=== PATIENT | female | born 1945 | race Caucasian/White ===

== ENCOUNTER 2020-08-24 07:36 | Outpatient (REF) | payer MEDICARE, OTHER, SELFPAY ==
--- NOTE | ~2020-08-24 | XR_ITS ---
EXAMINATION: XR KNEES, BILATERAL STANDING XR KNEE, RIGHT CLINICAL INFORMATION: Pain right knee COMPARISON: None TECHNIQUE: AP knees standing one view. 2 views right knee. FINDINGS: AP Bilateral Knees: There is severe loss of medial compartment right knee joint space with moderate periarticular spurring. There is mild loss of medial compartment left knee with mild periarticular spurring. The lateral compartments are normal. No loose body seen. Right Knee: There is moderate loss of patellofemoral compartment joint space with periarticular spurring and mild suprapatellar joint effusion. No bony erosive changes. No loose body abnormality. XR/XR knee standing BI IMPRESSION: Degenerative tricompartment arthritic changes right knee with moderate periarticular spurring. No loose body seen. There is mild joint effusion right knee. Mild degenerative changes medial compartment left knee.
--- NOTE | ~2020-08-24 | XR_ITS ---
EXAMINATION: XR KNEES, BILATERAL STANDING XR KNEE, RIGHT CLINICAL INFORMATION: Pain right knee COMPARISON: None TECHNIQUE: AP knees standing one view. 2 views right knee. FINDINGS: AP Bilateral Knees: There is severe loss of medial compartment right knee joint space with moderate periarticular spurring. There is mild loss of medial compartment left knee with mild periarticular spurring. The lateral compartments are normal. No loose body seen. Right Knee: There is moderate loss of patellofemoral compartment joint space with periarticular spurring and mild suprapatellar joint effusion. No bony erosive changes. No loose body abnormality. XR/XR knee RT 2V IMPRESSION: Degenerative tricompartment arthritic changes right knee with moderate periarticular spurring. No loose body seen. There is mild joint effusion right knee. Mild degenerative changes medial compartment left knee.
== END 2020-08-24 07:37 | disposition home or self-care (01) ==
LOC: HO.HOSX 07:36
PROVIDERS: Visit Provider Orthopaedic Surgery
DX: M25.562 Pain in left knee (principal); M17.11 Unilateral primary osteoarthritis, right knee
CPT/HCPCS: 73560; 73565; 99212

== ENCOUNTER 2020-10-07 07:00 | Outpatient (RCR) | payer MEDICARE, OTHER, SELFPAY ==
--- NOTE | 2020-09-14 08:46 | MHC.PT.EP ---
[facility] [place] Office [place] Office [place] Office [address] Elam [address] [phone] F: [phone] F: [phone] F: [phone] F: [phone] Physical Therapy Plan of Care Date of Evaluation: Date of Surgery: NA Diagnosis: right knee pain. Assessment: The patient arrived reporting right knee weakness and decreased mobility. She had 7 degrees lacking for knee extension and poor eccentric control which limits stair climbing and functional squatting. The patient is a good candidate for skilled PT Frequency and Duration: The patient will be seen 2x/week x 4 weeks Short Term Goals: 1. Improve knee extension ROM for an effective heel strike 2. 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 4 weeks - pt will have more quad control with TKE demonstrated by no medial collapse during a curb height step. 4 weeks -patient to be able to return to all functional movements and ADL's without limiting knee pain to show return to PLOF. Treatment Plan: Modalities to reduce pain, spasms and effusion. Manual therapy to restore motion and function. Therapeutic exercise to improve strength and flexibility. Neuromuscular re-education for posture and balance. Therapeutic activities to return to functional activities of daily living. Electronically signed by: Lindsay Felix PT DPT Please sign and return to therapist. Thank you for your referral.
--- NOTE | 2020-10-07 08:51 | MHC.PT.DC ---
[facility] [place] Office [place] Office [place] Office [address] Roxanna Elam 140 [facility] [place] [phone] F: [phone] F: [phone] F: [phone] F: [phone] Physical Therapy Discharge Report Diagnosis: right knee pain. Date of Surgery: NA Date of Evaluation: 09/14/20 Date of Discharge: 10/07/20 Treatments to Date: 7 Cancellations to Date: No Shows to Date: Discharge Status: Achieved Goals Improved Function Independent with HEP Discharge Summary: The patient has no pain, but significant terminal knee extension weakness on the right side. The patient has been shown the exercises and she is independent with her HEP. She has been discharged from skilled PT today due to reaching maximum potential. Electronically signed by: Lindsay Felix PT DPT Please sign and return to therapist. Thank you for your referral.
== END 2020-10-09 09:00 | disposition home or self-care (01) ==
LOC: HO.PT 07:00
PROVIDERS: PCP Internal Medicine; Visit Provider Orthopaedic Surgery
DX: M17.11 Unilateral primary osteoarthritis, right knee (principal)
CPT/HCPCS: 97110; 97162; 97530

== ENCOUNTER → 2020-11-02 08:23 | Outpatient (BNVA) | payer MEDICARE, OTHER, SELFPAY | PROVIDERS: Visit Provider Orthopaedic Surgery | DX: M17.11 Unilateral primary osteoarthritis, right knee (principal) | CPT/HCPCS: 99212 ==

== ENCOUNTER 2020-12-03 12:16 | Outpatient (REF) | payer MEDICARE, OTHER, SELFPAY ==
--- NOTE | ~2020-12-03 | MM_ITS ---
EXAMINATION: BONE DENSITOMETRY CLINICAL INDICATION: Osteopenia. COMPARISON: Previous BD dated 12/25/2014 and baseline BD dated 04/01/2009. TECHNIQUE: Using a [employer] DXA System (software version: 13.1) manufactured by [employer], dual-energy x-ray absorptiometry was performed of the lumbar spine and left hip. The images are of good technical quality. Summary results are attached. FINDINGS: AP SPINE L1-L3 (excluding L4): The data of L1-L4 has been changed to exclude the L4 vertebral body, because degenerative changes at this level may cause overestimation of lumbar spine density. Current: BMD 1.224 g/cm2, Z-score 1.5, T-score 0.5, normal, 1.7% increase from previous, 0.5% increase from baseline (<5% change is not significant). Prior: BMD 1.204 g/cm2. Baseline: BMD 1.218 g/cm2. LEFT FEMUR, NECK: Current: BMD 0.741 g/cm2, Z-score -0.6, T-score -2.1, osteopenia. Prior: BMD 0.778 g/cm2. Baseline: BMD 0.868 g/cm2. LEFT FEMUR, TOTAL: Current: BMD 0.944 g/cm2, Z-score 0.8, T-score -0.5, normal, 3.0% decrease from previous, 5.8% decrease from baseline (<5% change is not significant). Prior: BMD 0.973 g/cm2. Baseline: BMD 1.002 g/cm2. IDENTIFIED RISK FACTORS: Osteoporosis, menopause. HISTORY OF FRACTURE: None listed. MEDICATIONS: Vitamin D. MM/XR DEXA axial skeleton IMPRESSION: 1. DIAGNOSIS: Osteopenia based on the lowest T-score value of -2.1 in the femoral neck applying World Health Organization criteria. 2. 10-YEAR FRACTURE RISK PREDICTION, FRAX: Major osteoporotic fracture (clinical spine, forearm, hip or shoulder) 13.6%. Hip fracture 3.7%. 3. Treatment Recommendations: NOF guidelines recommend consideration for treatment in postmenopausal women and men age 50 and older presenting with the following: -A hip or vertebral (clinical or morphometric) fracture. -T-score less than or equal to -2.5 at the femoral neck or spine after appropriate evaluation to exclude secondary causes. -Low bone mass at the hip or spine and a 10-year fracture probability by FRAX of greater than or equal to 3% for hip fracture or greater than or equal to 20% for major osteoporotic fracture based on the [place] adapted WHO algorithm. 4. Other Recommendations: All treatment decisions require clinical judgment and consideration of individual patient factors, including patient preferences, comorbidities, previous drug use, risk factors not captured in the FRAX model (e.g. frailty, falls, vitamin D deficiency, increased bone turnover, interval significant decline in bone density) and possible under or overestimation of fracture risk by FRAX. Additional medical evaluation for secondary cause of low bone mineral density may be appropriate. FUTURE SCAN RECOMMENDATION: People with diagnosed cases of osteoporosis or at high risk for fracture should have regular bone mineral density tests. For patients eligible for Medicare, routine testing is allowed once every 2 years. The testing frequency can be increased to one year for patients who have rapidly progressing disease, those who are receiving or discontinuing medical therapy to restore bone mass, or have additional risk factors.
--- NOTE | ~2020-12-03 | MM_ITS ---
EXAMINATION: MM SCREENING DIGITAL BREAST TOMOSYNTHESIS, BILATERAL CLINICAL INFORMATION: Screening. Asymptomatic. The lifetime risk of breast cancer based on the Tyrer-Cuzick Model is 3%. COMPARISON: Mammography: 11/24/2019, 11/20/2018, 11/01/2017 TECHNIQUE: Digital breast tomosynthesis is performed in both the craniocaudal and mediolateral oblique views along with computer-aided detection (CAD). Synthesized 2D images are generated from the tomosynthesis. FINDINGS: There are scattered areas of fibroglandular density (ACR BI-RADS breast composition Category b). There are no significant masses, abnormal calcifications, or other abnormalities. Parenchymal pattern is similar to prior exams. Small incidental isolated intramammary nodes anterior and posterior upper outer right breast and low left axillary tail, or stable. There are a few benign calcifications again seen left breast. No abnormal calcifications. The axilla and skin contours are unremarkable. MM/MM tomosynthesis screening BI IMPRESSION: No mammographic evidence of malignancy. ASSESSMENT: BI-RADS 2: Benign RECOMMENDATION: Routine annual mammography screening. This patient's information was entered into a reminder system with a target due date for their next mammogram.
== END 2020-12-03 12:17 | disposition home or self-care (01) ==
LOC: HO.MAMMO 12:16
PROVIDERS: Visit Provider Nurse Practitioner Family
DX: Z12.31 Encounter for screening mammogram for malignant neoplasm of breast (principal); Z13.820 Encounter for screening for osteoporosis; M85.80 Other specified disorders of bone density and structure, unspecified site; Z78.0 Asymptomatic menopausal state
CPT/HCPCS: 77063; 77067; 77080

== ENCOUNTER 2021-12-08 11:39 | Outpatient (REF) | payer MEDICARE, OTHER, SELFPAY ==
--- NOTE | ~2021-12-08 | MM_ITS ---
EXAMINATION: MM SCREENING DIGITAL BREAST TOMOSYNTHESIS, BILATERAL CLINICAL INFORMATION: Screening. Asymptomatic. The lifetime risk of breast cancer based on the Tyrer-Cuzick Model is 3%. COMPARISON: Mammography: 12/03/2020, 11/24/2019, 11/20/2018 TECHNIQUE: Digital breast tomosynthesis is performed in both the craniocaudal and mediolateral oblique views along with computer-aided detection (CAD). Synthesized 2D images are generated from the tomosynthesis. FINDINGS: There are scattered areas of fibroglandular density (ACR BI-RADS breast composition Category b). There are no significant masses, abnormal calcifications, or other abnormalities. Pattern borders on predominantly fatty. There is no developing density or architectural abnormality. Incidental intramammary nodes again seen outer right breast. The axilla and skin contours are unremarkable. MM/MM tomosynthesis screening BI IMPRESSION: No mammographic evidence of malignancy. ASSESSMENT: BI-RADS 2: Benign RECOMMENDATION: Routine annual mammography screening. This patient's information was entered into a reminder system with a target due date for their next mammogram.
== END 2021-12-08 11:40 | disposition home or self-care (01) ==
LOC: HO.MAMMO 11:39
PROVIDERS: PCP Internal Medicine; Visit Provider Nurse Practitioner Family
DX: Z12.31 Encounter for screening mammogram for malignant neoplasm of breast (principal)
CPT/HCPCS: 77063; 77067

== ENCOUNTER 2022-12-14 09:59 | Outpatient (REF) | payer MEDICARE, OTHER, SELFPAY | END 2022-12-14 10:00 | disposition home or self-care (01) | LOC: HO.MAMMO 09:59 | PROVIDERS: Visit Provider Radiology Diagnostic Radiology | DX: Z12.31 Encounter for screening mammogram for malignant neoplasm of breast (principal) | CPT/HCPCS: 77063; 77067 ==

== ENCOUNTER → 2022-12-14 10:15 | Outpatient (BNV) | payer MEDICARE, OTHER, SELFPAY | PROVIDERS: Visit Provider Radiology Diagnostic Radiology | DX: Z12.31 Encounter for screening mammogram for malignant neoplasm of breast (principal) | CPT/HCPCS: 77063; 77067 ==

== ENCOUNTER 2023-12-21 08:21 | Outpatient (REF) | payer MEDICARE, OTHER, SELFPAY ==
--- NOTE | ~2023-12-21 | MM_ITS ---
EXAMINATION: MM SCREENING DIGITAL BREAST TOMOSYNTHESIS, BILATERAL CLINICAL INFORMATION: Screening. Asymptomatic. COMPARISON: Mammography: Comparison is made with available priors TECHNIQUE: Digital breast mammography with tomosynthesis is performed in both the craniocaudal and mediolateral oblique views along with computer-aided detection (CAD). FINDINGS: There are scattered areas of fibroglandular density (ACR BI-RADS breast composition Category b). There are no significant masses, abnormal calcifications, or other abnormalities. MM/MM tomosynthesis screening BI IMPRESSION: No mammographic evidence of malignancy. ASSESSMENT: BI-RADS BI-RADS 1 - Negative RECOMMENDATION: Routine annual mammography screening. 1 year F/U This examination should not preclude the clinical evaluation of a suspicious palpable abnormality. This patient's information was entered into a reminder system with a target due date for their next mammogram. Electronically signed by: Farideh Fuentes DO 01/01/2024 06:15 PM EDT
== END 2023-12-21 08:22 | disposition home or self-care (01) ==
LOC: HO.MAMMO 08:21
PROVIDERS: PCP Internal Medicine; Visit Provider Internal Medicine
DX: Z12.31 Encounter for screening mammogram for malignant neoplasm of breast (principal)
CPT/HCPCS: 77063; 77067

== ENCOUNTER → 2023-12-21 08:30 | Outpatient (BNV) | payer MEDICARE, OTHER, SELFPAY | PROVIDERS: PCP Internal Medicine; Visit Provider Internal Medicine | DX: Z12.31 Encounter for screening mammogram for malignant neoplasm of breast (principal) | CPT/HCPCS: 77063; 77067 ==

== ENCOUNTER 2023-12-28 17:09 | Inpatient (IN) | payer MEDICARE, OTHER, SELFPAY ==
[2023-12-28] VITALS (14 sets, daily range): BP systolic 161–197; BP diastolic 57–102; PULSE 58–76; RESP 12–25; TEMP 36.3–36.8; O2SAT 88–98; BMI 33.6
--- NOTE | ~2023-12-28 | XR_ITS ---
EXAMINATION: XR CHEST CLINICAL INFORMATION: Hypoxia COMPARISON: 06/09/2016 TECHNIQUE: Semiupright portable 2:22 PM view of the chest was obtained. FINDINGS: Liver portable exam demonstrates moderate cardiomegaly. Slight pulmonary vascular congestion with cephalization noted. Retrocardiac region difficult to assess. Suspect an element of minor airspace disease suggesting pneumonia. Small pleural effusion also question. XR/XR chest 1V IMPRESSION: Cardiomegaly with mild CHF as above. Retrocardiac infiltrate suspected. Electronically signed by: Dennis Marsh MD 12/29/2023 03:35 PM EDT
--- NOTE | ~2023-12-28 | CT_ITS ---
EXAMINATION: CT HEAD WITHOUT CONTRAST CLINICAL INFORMATION: Status post TNK with worsening symptoms. COMPARISON: CT head dated December 28, 2023 at 5:18 PM. TECHNIQUE: Contiguous axial imaging was performed from the skull base to vertex without intravenous administration of contrast. This CT examination was performed using dose optimization techniques as appropriate, variously including the following: *Automated exposure control *Adjustment of mA and/or kV according to patient size (this includes techniques or standardized protocols for targeted exams where dose is matched to indication/reason for exam; i.e. extremities or head) *Use of iterative reconstruction technique DLP: 680 mGy-cm FINDINGS: There is no acute intracranial hemorrhage. There is no evidence of acute/subacute cerebral or cerebellar infarction. There are age-indeterminate lacunar infarctions within the basal ganglia bilaterally and the left centrum semiovale. There is mild microvascular ischemic change. There is no midline shift or mass effect. No extra-axial fluid collection. Ventricles are normal in size. The orbits are symmetric and within normal limits. The visualized paranasal sinuses and mastoid air cells are clear. CT/CT head/brain wo IV con IMPRESSION: No acute intracranial abnormality. Specifically, there is no intracranial hemorrhage status post the administration of TNK. Mild microvascular ischemic disease. Age indeterminate lacunar infarctions within the basal ganglia and left centrum semiovale. This critical result was discussed with Dr. Mederos at 8:15 PM on 12/28/2023 and it was ascertained that the content and urgency of the report was understood at the time of direct communication. Electronically signed by: Milton Scott DO 12/28/2023 08:16 PM EDT
--- NOTE | ~2023-12-28 | MR_ITS ---
EXAMINATION: MR BRAIN WITHOUT CONTRAST CLINICAL INFORMATION: Cerebrovascular accident status post TNK. COMPARISON: CT head 12/29/2023. TECHNIQUE: MRI of the brain was obtained using routine sequences without contrast. FINDINGS: There is restricted diffusion representing multiple acute infarcts primarily located between the major vascular territories of the right cerebral hemisphere as well as a few cortical infarcts within the right occipital lobe. These findings are superimposed upon numerous chronic small vessel ischemic changes primarily involving the periventricular white matter. There are scattered punctate foci of magnetic susceptibility artifact within the gary, thalami, and cerebellum indicating likelihood of underlying chronic hypertensive angiopathy. There is no intracranial mass effect or midline shift. No abnormal extra-axial collection. Lateral and third ventricles are normal. No hydrocephalus. Midline structures including the cervicomedullary junction are normal. No acute bone marrow signal changes. There is a trace left mastoid tip effusion. Mild paranasal sinus disease primarily affecting the ethmoid air cells. Globes and orbits are grossly symmetric. MR/MR head/brain wo con IMPRESSION: There are multiple acute infarcts primarily located between the major vascular territories of the right cerebral hemisphere as well as a few cortical infarcts within the right occipital lobe. These findings are superimposed upon numerous chronic small vessel ischemic changes primarily involving the periventricular white matter. There are also scattered chronic microhemorrhages within the gary, thalami, and cerebellum indicating the likelihood of underlying chronic hypertensive angiopathy. Electronically signed by: Nii Lyon MD 12/29/2023 02:06 PM EDT
--- NOTE | ~2023-12-28 | CT_ITS ---
EXAMINATION: CT ANGIOGRAM HEAD AND NECK WITHOUT AND WITH CONTRAST CLINICAL INFORMATION: LEFT ARM WEAKNESS. COMPARISON: CT HEAD DATED DECEMBER 28, 2023. TECHNIQUE: CONTIGUOUS AXIAL CT IMAGES WERE OBTAINED FROM THE AORTIC ARCH TO THE VERTEX OF THE HEAD FOLLOWING THE ADMINISTRATION OF 50 ML OF OMNIPAQUE 350 INTRAVENOUS CONTRAST. THE DATA WAS TRANSFERRED TO AN INDEPENDENT WORKSTATION, WHERE 3-D RECONSTRUCTIONS WERE PERFORMED. PRE-AND POSTCONTRAST HEAD CTS WERE ALSO PERFORMED. THE DEGREE OF STENOSIS DETERMINED BY NASCET CRITERIA. THIS CT EXAMINATION WAS PERFORMED USING DOSE OPTIMIZATION TECHNIQUES APPROPRIATE, VARIOUSLY INCLUDING THE FOLLOWING: *AUTOMATED EXPOSURE CONTROL *ADJUSTMENT OF MA AND/OR KV ACCORDING TO PATIENT SIZE (THIS INCLUDES TECHNIQUES OR STANDARDIZED PROTOCOLS FOR TARGETED EXAMS WHERE DOSE IS MATCHED TO INDICATION/REASON FOR EXAM; I.E. EXTREMITIES OR HEAD) *USE OF ITERATIVE RECONSTRUCTION TECHNIQUE DLP: 1443 MGY-CM INTERPRETATION OF FILMS: HEAD CT: There is no acute intracranial hemorrhage. There is no evidence of acute/subacute cerebral or cerebellar infarction. There is an age indeterminant lacunar infarction within the anterior left canela radiata. There is an age indeterminate lacunar infarction within the left basal ganglia. There is mild microvascular ischemic change. There is no midline shift or mass effect. There is no extra-axial fluid collection. The ventricles are normal in size. There is no pathologic enhancement following the intravenous administration of contrast. The orbits are normal in appearance. The mastoid air cells and visualized paranasal sinuses are clear. NECK CTA: The visualized aorta is normal in caliber. There is mild calcific atherosclerotic disease throughout the aortic arch. The origins of the common carotid arteries are widely patent. The origin of the right vertebral artery is widely patent. There is mild narrowing at the origin of the left vertebral artery. The subclavian arteries are widely patent. There is mild calcific atherosclerotic disease at the level of the right common carotid artery bifurcation resulting in mild luminal irregularity of the proximal right internal carotid artery without significant stenosis. The cervical segment of the right internal carotid artery is otherwise normal in caliber. There is significant calcific atherosclerotic disease at the level of the left common carotid artery bifurcation resulting in significant luminal irregularity throughout the proximal left internal carotid artery without significant stenosis. There may be a 4 mm medially projecting pseudoaneurysm within the carotid bulb. The remainder of the cervical segment of the left internal carotid artery demonstrates smooth luminal margins and is normal in caliber. The right vertebral artery is patent and has a normal course through the cervical region. The left vertebral artery is patent and has a normal course through the cervical region. HEAD CTA: The intracranial right internal carotid artery is normal in caliber. There is a large caliber, type right posterior communicating artery. The right anterior and middle cerebral arteries are normal in appearance without significant stenosis or major branch vessel occlusion. The intracranial left internal carotid artery is normal in caliber. The left anterior and middle cerebral arteries are normal in appearance without significant stenosis or major branch vessel occlusion. The anterior communicating artery is unremarkable. The intracranial vertebral arteries are widely patent and communicate normally with the basilar trunk. The posterior inferior cerebellar arteries are normal in appearance. The basilar artery and posterior cerebral artery vasculature is normal in appearance. The P1 segment of the right posterior cerebral artery is markedly hypoplastic. No intracranial aneurysm. No evidence of high flow vascular malformation. OTHER: Lung apices are clear. There is a 1 cm low-attenuation lesion within the left lobe of the thyroid gland. SUMMARY: No acute intracranial abnormality. There is an age indeterminate lacunar infarction within the anterior left canela radiata. There is an age indeterminate left basal ganglia lacunar infarction. Mild microvascular ischemic change. No intracranial large vessel occlusion. There is significant calcific atherosclerotic disease at the level of the left common carotid artery bifurcation resulting in significant luminal irregularity throughout the left carotid bulb. There may be a 4 mm medially projecting pseudoaneurysm within the left carotid bulb. There is a 1 cm low-attenuation lesion within the left lobe of the thyroid gland. Further evaluation with ultrasound is recommended if not already performed. Electronically signed by: Milton Scott DO 12/28/2023 07:39 PM EDT
--- NOTE | ~2023-12-28 | CT_ITS ---
EXAMINATION: CT HEAD WITHOUT CONTRAST CLINICAL INFORMATION: Worsening symptoms after TPA COMPARISON: CT head 12/28/2023 7:00 PM TECHNIQUE: Contiguous axial imaging was performed from the skull base to vertex without intravenous administration of contrast. This CT examination was performed using dose optimization techniques as appropriate, variously including the following: *Automated exposure control *Adjustment of mA and/or kV according to patient size (this includes techniques or standardized protocols for targeted exams where dose is matched to indication/reason for exam; i.e. extremities or head) *Use of iterative reconstruction technique DLP: 785 mGy-cm FINDINGS: No intracranial hemorrhage, tumors or acute infarcts identified. Mild diffuse commensurate prominence of the ventricles and sulci. Unchanged multifocal scattered subcortical and periventricular white matter patchy hypodensities including focal hypodensities within the left canela radiata. Normal appearance of the orbits and globes. No extracranial soft tissue inflammatory changes. No significant opacification of the visualized paranasal sinuses, mastoid air cells and middle ear cavities. CT/CT head/brain wo IV con IMPRESSION: *No acute intracranial abnormalities. No acute intracranial hemorrhage. Electronically signed by: Alfonso Hernandez MD 12/29/2023 02:21 AM EDT
--- NOTE | ~2023-12-28 | CT_ITS ---
EXAMINATION: CT HEAD WITHOUT CONTRAST (STROKE PROTOCOL) CLINICAL INFORMATION: Stroke protocol. Left arm weakness. COMPARISON: None available. TECHNIQUE: Contiguous axial imaging was performed from the skull base to vertex without intravenous administration of contrast. This CT examination was performed using dose optimization techniques as appropriate, variously including the following: *Automated exposure control *Adjustment of mA and/or kV according to patient size (this includes techniques or standardized protocols for targeted exams where dose is matched to indication/reason for exam; i.e. extremities or head) *Use of iterative reconstruction technique DLP: 1205 mGy-cm FINDINGS: There is no acute intracranial hemorrhage. There is no evidence of acute/subacute cerebral or cerebellar infarction. There is an age indeterminant lacunar infarction within the anterior left canela radiata. There is mild microvascular ischemic change. There is no midline shift or mass effect. There is no extra-axial fluid collection. The ventricles are normal in size. The orbits are normal in appearance. The mastoid air cells and visualized paranasal sinuses are clear. CT/CT head for stroke IMPRESSION: No acute intracranial pathology. There is an age indeterminate lacunar infarction within the anterior left canela radiata. Mild microvascular ischemic change. This critical result was discussed with Dr. Stout at 5:49 PM hours on 12/28/2023. It was ascertained that the content and urgency of the report was understood at the time of direct communication. Electronically signed by: Milton Scott DO 12/28/2023 05:49 PM EDT
--- NOTE | ~2023-12-28 | XR_ITS ---
EXAMINATION: XR CHEST CLINICAL INFORMATION: Questionable aspiration COMPARISON: None available. TECHNIQUE: Frontal view of the chest was obtained. FINDINGS: Large body habitus and overlying thermal blanket limits evaluation of the bases. Blunting of the left costophrenic angle may represent underlying pleural effusion. No pneumothorax. Cardiac mediastinal silhouette within normal limits. Bilateral shoulder osteoarthritis. XR/XR chest 1V IMPRESSION: Suboptimal study to evaluate bases due to body habitus and overlying thermal blanket. Left costophrenic angle is blunted and may represent consolidation or effusion. Recommend dedicated CT thorax for further evaluation, if indicated. Electronically signed by: Ernst Syed DO 12/29/2023 09:32 PM EDT RP
--- NOTE | 2023-12-28 17:15 | ECG_ITS ---
Test Reason : ?stroke Blood Pressure : / mmHG Vent. Rate : 059 BPM Atrial Rate : 059 BPM P-R Int : 196 ms QRS Dur : 082 ms QT Int : 450 ms P-R-T Axes : 023 -23 022 degrees QTc Int : 445 ms Sinus bradycardia with occasional Premature ventricular complexes Inferior infarct , age undetermined Anteroseptal infarct , age undetermined Abnormal ECG When compared with ECG of 11-JUL-2006 10:52, Premature ventricular complexes are now Present Anteroseptal infarct is now Present Inferior infarct is now Present Referred By: Cielo Mcintosh Electronically Signed By:HAYLIE HILLS
--- NOTE | 2023-12-28 17:19 | ED.NEUROSD ---
HPI - Neuro Symptoms/Deficit General Chief Complaint: Stroke Stated Complaint: cant move L arm, trouble walking Time Seen by Provider: 12/28/23 17:29 Source: patient Mode of arrival: ambulatory Limitations: no limitations History of Present Illness ED Provider: julien MCNULTY Narrative: Patient with history of hypertension otherwise healthy 15 30 patient called her daughter and informed that she is weak on the left side specially upper extremity but feels leg also heavy but able to ambulate to the bathroom when daughter reached home she noticed patient had difficulty in walking also. No headache not on any blood thinner no history of TIA or CVA in the past no cardiac arrhythmias Related Data Home Medications ?Medication ?Instructions ?Recorded ?Confirmed lisinopril 10 mg tablet 10 mg PO DAILY 12/29/23 12/29/23 omeprazole 20 mg capsule,delayed 20 mg PO DAILY@0630 12/29/23 12/29/23 release Allergies Allergy/AdvReac Type Severity Reaction Status Date / Time No Known Allergies Allergy Unknown Verified 12/28/23 17:17 Review of Systems Review of Systems: Yes all other systems are reviewed and are negative [facility] Past Medical History Medical History Primary osteoarthritis of right knee HTN (hypertension) Social History Social History Household Members: Spouse Housing: House Do you presently have visiting nurse or other home services: No Patient Tobacco Use Status: Former Tobacco user Tobacco use type: Cigarette Smoked in Last 30 Days: No Use of substances other than those prescribed or required for medical reasons: No Currently Displaying Signs/Symptoms of Drug Intoxication Withdrawal: No Have you been hit, kicked, punched, or otherwise hurt by someone within the past year? If so, by whom?: No Do you feel safe in your current relationship?: Yes Is there a partner from a previous relationship who is making you feel unsafe now?: No Are you made to feel afraid or neglected: No Advance Directives: Yes Advance Directives Information Provided: No Advance Directives on File: No Advance Directives Date on File: 12/29/23 Do you have a plan to hurt others: No Plan Recently lost weight without trying: No Nutrition Risks: No Nutritional Risk Patient : No : No Poor oral hygiene: No Current occupational status: retired Current occupation: right handed Physical Exam Vital Signs: Vital Signs: Last Vital Signs Temp 102.4 F H 12/29/23 09:00 Pulse 95 12/29/23 09:00 Resp 24 H 12/29/23 09:00 BP 154/66 H 12/29/23 09:00 Pulse Ox 91 L 12/29/23 09:00 O2 Del Method Room Air 12/29/23 09:00 BMI result Body Mass Index 33.6 Appearance: Alert. Oriented X3. No acute distress. Eyes: PERRLA, No Nystagmus ENT: Pharynx normal. Oral Mucosa moist Neck: Normal inspection. Neck supple. CVS: Normal heart rate and rhythm. Pulses normal. Respiratory: No respiratory distress. Equal air entry bilateral, no wheezing/rales/rhonchi Abdomen: Soft and nontender. Bowel sounds are present, no mass palpable, no CVA tenderness Skin: Skin warm and dry. Normal skin color. Normal skin turgor. Extremities: No lower extremity edema. No calf tenderness Neuro: Oriented X 3. Left hemiparesis.No cerebellar signs , cranial nerves II-XII intact no facial asymmetry Course Course Course Narrative: This is a Rapid Medical Examination (RME) performed by Jess Mcintosh PA-C in triage. Full HPI, ROS, assessment and treatment plan per primary provider in the Main ED. 78 yo female here for eval of left sided weakness which began around 1530 today (2 hours prior to eval). reports numbness to LUE with difficulty lifting the arm and heaviness to LLE. no hx of CVA. not on AC. family at bedside to assist with history. + 3/5 weakness to LUE, LLE with left pronator drift. no slurred speech or facial droop. NIH 3 - ED provider Dr. Stout informed. patient immediately brought back to main ED for CT and further evaluation. Plan: stroke protocol Medications Administered Generic Name Dose Route Start Last Admin Trade Name Freq PRN Reason Stop Dose Admin Ondansetron HCl 4 mg 12/29/23 04:12 12/29/23 04:20 Ondansetron Hcl 4 Mg/2 Ml Vial IVPUSH 4 mg Q4H PRN Administration Nausea and Vomiting Discontinued Medications Generic Name Dose Route Start Last Admin Trade Name Freq PRN Reason Stop Dose Admin Acetaminophen 650 mg 12/28/23 18:06 12/28/23 18:15 Acetaminophen 325 Mg Tablet PO 12/28/23 18:07 650 mg ONCE ONE Administration Acetaminophen 1,000 mg in 100 mls @ 400 mls/hr 12/28/23 23:47 12/29/23 01:04 Ofirmev IV 12/29/23 00:01 Infused ONCE ONE Infusion Iohexol 70 ml 12/28/23 17:53 12/28/23 17:53 Iohexol 350 Mg/Ml 100 Ml Infus..Btl IV 12/28/23 17:54 70 ml ONCE ONE Administration Morphine Sulfate 2 mg 12/28/23 22:05 12/28/23 22:20 Morphine Sulfate 2 Mg/Ml Cartridge IVPUSH 12/28/23 22:06 2 mg ONCE ONE Administration Protocol Ondansetron HCl 4 mg 12/28/23 21:03 12/28/23 21:12 Ondansetron Hcl 4 Mg/2 Ml Vial IVPUSH 12/28/23 21:04 4 mg ONCE ONE Administration Ondansetron HCl 4 mg 12/29/23 00:24 12/29/23 00:24 Ondansetron Hcl 4 Mg/2 Ml Vial IVPUSH 12/29/23 00:25 4 mg ONCE ONE Administration Tenecteplase 22 mg 12/28/23 17:29 12/28/23 17:36 Tenecteplase 50 Mg/10 Ml Kit IVPUSH 12/28/23 17:30 22 mg ONCE ONE Administration Medical Decision Making Medical Decision Making [facility] Narrative: Patient with right MCA CVA with left-sided weakness status post TNK which was given at 17:29 1 hour after TNK patient started having speech difficulty and facial droop slightly confused. Blood pressures remained stable repeat CT scan head was done to rule out bleed which was also negative CTA also negative for any large vessel occlusion case discussed with Dr. Kemp plan to admit was TNK plan for MRI in a.m Patient will be admitted to the ICU post TNK had another CT scan done at midnight which also seems to be negative for bleed.. Differential Diagnosis Differential Diagnoses: The differential diagnosis associated with the presentation includes Admission/Observation Consideration of admission/observation: Escalation of care including admission/observation considered Consult Healthcare Provider Management of the patient was discussed with: Head Track Coach Lab Data [facility] Lab Attestation statement: I reviewed the patient's lab results. 12/28/23 18:02 12/29/23 04:45 Labs: Lab Results 12/28/23 12/28/23 Range/Units 17:32 18:02 WBC 5.9 (4.8-10.8) X10*3/uL RBC 4.40 (4.20-5.50) X10*6/uL Hgb 13.3 (12.0-16.0) g/dl Hct 40.6 (37.0-47.0) % MCV 92.3 (80.0-98.0) fL MCH 30.2 (27.0-33.0) pg MCHC 32.8 (31.0-35.0) g/dl RDW 12.3 (11.0-16.0) % Plt Count 243 (160-400) X10*3/uL MPV 9.8 (9.4-12.3) fL Immature Gran % (Auto) 0.2 (0.0-0.4) % Neut % (Auto) 53.7 (45-73) % Lymph % (Auto) 34.5 (20-40) % [place] % (Auto) 8.5 (2-11) % Eos % (Auto) 2.4 (0-4) % Baso % (Auto) 0.7 (0-2) % Lymph # (Auto) 2.0 (1.2-4.9) X10*3/uL [place] # (Auto) 0.5 (0.1-1.2) X10*3/uL Eos # (Auto) 0.1 (0.0-0.4) X10*3/uL Baso # (Auto) 0.0 (0.0-0.2) X10*3/uL Abs Immat Gran (auto) 0.01 (0.00-0.03) X10*3/uL Absolute Neuts (auto) 3.2 (2.0-8.3) x10*3/uL Absolute Nucleated RBC 0.000 (0.0-0.012) X10*3/uL Nucleated RBC % (auto) 0.0 (0.0-0.2) /100WBC PT 10.0 L (10.9-12.4) SEC INR 0.9 (0.9-1.1) APTT 29.8 (26.0-36.8) SEC Sodium 137 (135-145) mmol/L Potassium 4.0 (3.3-5.1) mmol/L Chloride 106 (96-108) mmol/L Carbon Dioxide 26 (22-29) mmol/L Anion Gap 9 L (12-20) BUN 21 H (9-16) mg/dL Creatinine 0.98 (0.5-1.4) mg/dL Estim Creat Clear Calc 49.1 Estimated GFR 55 POC Glucose 91 (60-115) mg/dL Random Glucose 90 (60-115) mg/dL Calcium 9.3 (8.4-10.2) mg/dL Troponin I High Sens < 2.7 (<3.5-17.0) ng/L Triglycerides 198 H (<150) mg/dL Cholesterol 187 (<200) mg/dL LDL Cholesterol, Calc 97 (<100) mg/dL HDL Cholesterol 51 (>40) mg/dL NIH Stroke Scale Internal: Initial- Upon Arrival Time: 17:18 Level of Consciousness: Alert Level of Consciousness Questions: Answers both questions correctly Level of Consciousness Commands: Performs both tasks correctly Best Gaze: Normal Visual: No visual loss Facial Palsy: Normal Motor Arm (Right): No drift Motor Arm (Left): Drift Motor Leg (Right): No drift Motor Leg (Left): Some effort against gravity Limb Ataxia: Absent Sensory: Normal Best Language: No aphasia Dysarthia: Normal Extinction and Inattention: No abnormality Score: 3 Critical Care Time Critical Care Time Critical Care Time: Yes Total Critical Care Time: 50 Attestation: The patient was critically ill with a high probability of imminent or life threatening deterioration. I spent greater than ?60??minutes of discontinuous time evaluating the patient,delivering critical care at the bedside, discussing and evaluating pertinent data with consultants. Critical care time does not include time spent performing separately billable procedures or teaching. Total time spent performing critical care was 50???minutes. Discharge Plan Discharge Clinical Impression: CVA (cerebral vascular accident) Patient Disposition: Admitted As Inpatient Discharge Date/Time: 12/29/23 04:27
[2023-12-28] MEDS: Tenecteplase 50 MG/10 ML KIT 22 MG IVPUSH (17:36)
--- NOTE | 2023-12-28 17:38 | PC.NURSE ---
TNK 22mg (4.4mL) administered in CT scan per orders of MD Argelia.
[2023-12-28 17:42] LABS: Glucose, Whole Blood 91 mg/dL (60-115)
--- NOTE | 2023-12-28 17:42 | PC.NURSE ---
pt unsteady getting up to standing scale in triage requirinf this RN to hold on to her, informed RN and MD in main ER of requirement for verification of pts weight with bed scale
[2023-12-28] MEDS: iohexoL 350 MG/ML 100 ML INFUS..BTL 70 ML IV (17:53)
[2023-12-28 18:06] LABS: MANUAL DIFF FLAG NO
--- NOTE | 2023-12-28 18:10 | PC.NURSE ---
this RN assumed care of pt after pt had CT completed/TNK was administered by previous RN. pt presents to the ED w/ LUE weakness w/ associated numbness/tingling in her hand x 1530. pt verbalizes sitting in recliner where she was knitting and then noticed sudden onset weakness/heaviness in left hand/LUE. pt states she was at home alone and waited for a family member to get there. pt was then driven to ED by family member. pt immediately to CT after triage assessment. after pt returned from CT and upon this RNs first assessment, neuros intact. no facial droop noted. face symmetrical. strength equal bilaterally. no pronator drift noted. pt changed into hospital attire. placed on media monitor displaying nsr w/ frequent PVCs. denies any chest pain/palpitations. vss and up to date aside from being hypertensive. labs obtained/sent. ekg performed by tech. no sob/wob noted. respirations even/unlabored. family member bedside for support. plan of care ongoing. call goldman placed within reach.
[2023-12-28] MEDS: Acetaminophen 325 MG TABLET 650 MG PO (18:15)
[2023-12-28 18:17] LABS: INTERNATIONAL NORM RATIO 0.9 (0.9-1.1)
--- NOTE | 2023-12-28 18:17 | PC.NURSE ---
pt verbalizing 3/10 right sided headache post TNK medication administration. pt denies any dizziness/lightheadedness/change in vision. no episodes of nausea/vomiting. provider notified/aware. provider bedside speaking w/ pt and family in regards to plan of care/being admitted. pt passed nursing swallow evaluation w/ difficulty. no complications noted. pt medicated per provider order. pt tolerated administration well. pt continues to rest comfortably in stretcher in no apparent distress. no sob/wob noted. respirations even/unlabored. plan of care ongoing. call goldman placed within reach.
[2023-12-28 18:19] LABS: Partial Thromboplastin Time 29.8 SEC (26.0-36.8)
[2023-12-28 18:20] LABS: Basophils Percent Auto 0.7 % (0-2); Eosinophils Absolute Auto 0.1 X10*3/uL (0.0-0.4); Eosinophils Percent Auto 2.4 % (0-4); Hematocrit 40.6 % (37.0-47.0); Hemoglobin 13.3 g/dl (12.0-16.0); Imm Gran Abs Auto 0.01 X10*3/uL (0.00-0.03); Imm Gran Pct Auto 0.2 % (0.0-0.4); Lymphocytes Percent Auto 34.5 % (20-40); Mean Corpuscular HGB Conc 32.8 g/dl (31.0-35.0); Mean Corpuscular Hemoglobin 30.2 pg (27.0-33.0); Mean Corpuscular Volume 92.3 fL (80.0-98.0); Mean Platelet Volume 9.8 fL (9.4-12.3); Monocytes Absolute Auto 0.5 X10*3/uL (0.1-1.2); Monocytes Percent Auto 8.5 % (2-11); Neutrophils Absolute Auto 3.2 x10*3/uL (2.0-8.3); Neutrophils Percent Auto 53.7 % (45-73); Platelet Count 243 X10*3/uL (160-400); Red Cell Distribution Width 12.3 % (11.0-16.0); White Blood Count 5.9 X10*3/uL (4.8-10.8)
--- NOTE | 2023-12-28 18:35 | PC.NURSE ---
this RN called to bedside by family member d/t concern that pt may be developing facial droop. upon assessment, left sided facial droop noted w/ associated weakness in LUE. slur in speech/confusion noted by pt. people responding w/ incorrect answers such as, [place] when asked, how are you feeling? pt's daughter who is bedside states that her daughter is no longer answering questions appropriately and is concerned. MD notified/immediately. MD bedside to assess. otherwise pt's vss. nsr on the playground monitor. no sob/wob noted. respirations even/unlabored. plan of care ongoing.
[2023-12-28 18:36] LABS: Anion Gap 9 (12-20); Blood Urea Nitrogen 21 mg/dL (9-16); Calcium 9.3 mg/dL (8.4-10.2); Carbon Dioxide 26 mmol/L (22-29); Chloride 106 mmol/L (96-108); Cholesterol 187 mg/dL (<200); Creatinine Clr Calc Pharmacy 49.1; Estimated Glomerular Filt Rate 55; Glucose Random 90 mg/dL (60-115); HDL Cholesterol 51 mg/dL (>40); LDL Cholesterol Calculated 97 mg/dL (<100); Sodium 137 mmol/L (135-145); Triglycerides 198 mg/dL (<150)
[2023-12-28 18:46] LABS: Troponin-I High Sensitivity < 2.7 ng/L (<3.5-17.0)
[2023-12-28 19:12] LABS: Stroke Lab Use COMPLETE
--- NOTE | 2023-12-28 20:06 | PC.NURSE ---
Assumed care of pt at 1900. Pt has L-sided facial droop, Left sided weakness, slurred speech. Unable to focus eyes at this time. Alert and oriented X4, verbalizing not feeling well. Following commands as best as possible.
[2023-12-28] MEDS: ondansetron HCL 4 MG/2 ML VIAL IVPUSH (21:12)
[2023-12-28] MEDS: Morphine Sulfate 2 MG/ML CARTRIDGE IVPUSH (22:20)
--- NOTE | 2023-12-28 22:48 | CA_ITS ---
Transthoracic Echocardiogram Patient (Last, First, Middle): Anabel Titus M Gender: Female Date of : 1945 Age: 78 Procedure Date: 12/29/2023 Procedure Type: Transthoracic Echocardiogram Location: ICU Height: 160.02 cm Weight: 95.71 kg BSA: 1.98 m2 Heart Rate: bpm BP: 145 / 63 mmHg Computer Technical Specialist: LAI Referring MD: Fracisco Gibbons MD Symptoms: CVA s/p TNK Study Quality: Technically Difficult/Contrast Conclusions: - Normal left ventricular cavity size. There is mildly increased left ventricular wall thickness. The left ventricular systolic function is hyperdynamic. The visually estimated ejection fraction is >70%. - E/E prime ratio is between 8 and 15 consistent with indeterminate filling pressures. - Normal right ventricular cavity size and systolic function. - There is mild aortic valve stenosis. Findings Procedure Information Contrast agent, definity, is being given per protocol without apparent complications. Left Ventricle Normal left ventricular cavity size. There is mildly increased left ventricular wall thickness. The left ventricular systolic function is hyperdynamic. The visually estimated ejection fraction is >70%. There is evidence of regional wall motion abnormalities. Abnormal diastolic function is noted. Spectral Doppler is indicative of an impaired relaxation filling pattern. E/E prime ratio is between 8 and 15 consistent with indeterminate filling pressures. Right Ventricle Normal right ventricular cavity size and systolic function. Atria The left atrium is mildly dilated. Aortic Valve There is a normal trileaflet aortic valve. There is mild calcification of the aortic valve. There is mild aortic valve stenosis. There is no aortic valve regurgitation. Mitral Valve The mitral valve appears normal. There is no mitral valve regurgitation. There is no mitral valve stenosis. Pulmonic Valve The pulmonic valve is likely normal. Tricuspid Valve Normal tricuspid valve structure. There is no tricuspid valve regurgitation. Tricuspid regurgitation envelope is inadequate for calculation of right ventricular systolic pressure. Normal right atrial pressure. Great Vessels All visible segments of the aorta are normal in size. Venous The inferior vena cava is normal in size and collapses greater than 50% with inspiration. Pericardium/Pleural There is no evidence of pericardial effusion. Prior Study Comparison No prior study available for comparison. Measurements 2D Linear Measurements IVSd: 1.05 0.6-0.9/0.6-1.0 cm LVIDd: 4.80 3.9-5.3/4.2-5.9 cm LVIDd Index: 2.42 2.4-3.2/2.2-3.1 cm/m2 LVIDs: 2.81 2.0-3.6 cm LVPWd: 1.06 0.7-1.1 cm Ao Root: 3.20 2.1-3.5 cm LA Diam: 3.50 2.7-3.8/3.0-4.0 cm LAIDs Index: 1.77 1.5-2.3 cm/m2 LV Mass: 228.12 67-162/88-224 g LV Mass Index: 115.21 43-95/49-115 g/m2 LVOT Diam: 2.00 3.0+(-)1.3 cm Mitral Valve MV VTI: 0.35 MV Pk Shlomo: 1.72 MV Mn Shlomo: 1.08 MV Pk Grad: 12.00 MV Mn Grad: 5.00 MV Pk E: 0.96 MV PK A: 1.30 MV Decel Time: 191.00 E/A: 0.70 E'Lateral: 7.94 E'Medial: 5.11 E/E' Med: 18.70 E/E' Lat: 12.00 PHT: 56.00 MVA PHT: 3.93 MVA Continuity: 1.86 Decel [place]: 4.99 Aortic Valve AoV Pk Shlomo: 2.54 AoV Mn Shlomo: 1.81 AoV VTI: 0.39 AoV Pk Grad: 26.00 Aov Mn Grad: 15.00 HEMANTH Cont.VTI: 1.67 LVOT LVOT Pk Shlomo: 1.32 LVOT Mn Shlomo: 0.77 LVOT VTI: 0.21 LVOT Pk Grad: 7.00 LVOT Mn Grad: 3.00 LVOT Diam: 2.00 LVOT Area: 3.14 Diastolic Function MV Pk E: 0.96 MV Pk A: 1.30 E/A: 0.70 E'Medial: 5.11 E/E' Med: 18.70 E' Laterial: 7.94 E/E' Lat: 12.00 Tricuspid Valve RA Press: 8.00 Great Vessels Aorta Ao Root-2D: 3.20 2.0-3.7 cm Ao Asc: 3.50 2.1-3.4 cm Updated in Other Vendor System with Status of Final Ponce Jarvis MD electronically signed on 12/29/2023 3:12:16 PM with status of Final
[2023-12-28 23:07] LABS: Glucose, Whole Blood 152 mg/dL (60-115)
--- NOTE | 2023-12-28 23:09 | PM.CCHP ---
History of Present Illness Date of Service: 12/28/23 Attending physician on admission: Fracisco Gibbons Chief Complaint: Stroke alert ?The patient is a 78-year-old female past medical history of hypertension and osteoarthritis? who presented to the emergency department? for left upper extremity weakness.? According to patient and the daughter about an hour and a half prior to arriving to the emergency department,? patient developed weakness of the left upper extremity,? she fell left leg feels heavy,? but was able to ambulate to the bathroom,? but did have difficulty ambulating to the emergency department.? Head CT was performed,? no acute bleed, but did show age indeterminate lacunar infarction within the anterior left canela radiata.? CTA with no large vessel occlusion. Neurology, Dr Kemp,? consulted who advises okay to give TNK.? TNK administered 172.? ? 1 hour after TNK administration,? patient developed speech difficulty, facial droop, slightly more confused, reporting a headache,? and worsening left upper and lower extremity weakness.? Head CT was repeated, ? with no changes from previous.? Neurology advised for MRI in the morning.? ?Patient will be admitted to ICU for hemodynamic monitoring of CVA status post TNK Review of Systems Review of Systems: Yes all other systems are reviewed and are negative PMFSH Past Medical History Medical History (Updated 12/29/23 @ 12:30 by Jerardo Kemp MD) Primary osteoarthritis of right knee HTN (hypertension) Social History Social History Household Members: Spouse Housing: House Do you presently have visiting nurse or other home services: No Patient Tobacco Use Status: Former Tobacco user Tobacco use type: Cigarette Smoked in Last 30 Days: No Use of substances other than those prescribed or required for medical reasons: No Currently Displaying Signs/Symptoms of Drug Intoxication Withdrawal: No Have you been hit, kicked, punched, or otherwise hurt by someone within the past year? If so, by whom?: No Do you feel safe in your current relationship?: Yes Is there a partner from a previous relationship who is making you feel unsafe now?: No Are you made to feel afraid or neglected: No Advance Directives: Yes Advance Directives Information Provided: No Advance Directives on File: No Advance Directives Date on File: 12/29/23 Do you have a plan to hurt others: No Plan Recently lost weight without trying: No Nutrition Risks: No Nutritional Risk Patient : No : No Poor oral hygiene: No service: No Current occupational status: retired Current occupation: right handed Meds Allergies Allergy/AdvReac Type Severity Reaction Status Date / Time No Known Allergies Allergy Unknown Verified 12/28/23 17:17 Active Medications: Current Medications Acetaminophen (Acetaminophen 325 Mg Tablet) 650 mg PO Q6H PRN PRN Reason: Pain, Mild (Pain Scale 1-3), fever or headache Home Medications ?Medication ?Instructions ?Recorded ?Confirmed ?Last Taken ?Type lisinopril 10 mg tablet 10 mg PO DAILY 12/29/23 12/29/23 12/28/23 History omeprazole 20 mg capsule,delayed 20 mg PO DAILY@0630 12/29/23 12/29/23 12/28/23 History release Physical Exam Vital Signs: Vital Signs: Last Vital Signs Temp 97.4 F 12/28/23 23:01 Pulse 69 12/28/23 23:01 Resp 18 12/28/23 23:01 BP 161/69 H 12/28/23 23:01 Pulse Ox 92 12/28/23 23:01 O2 Del Method Room Air 12/28/23 23:01 BMI result Body Mass Index 33.6 Constitutional: Alert and oriented x 3 HEENT: Reports severe headache, primarily on right side of head. No vision change or blurred vision. Head is normocephalic, atraumatic, pupils equal round reactive to light accommodation bilaterally. No hearing loss, sneezing, congestion, runny nose or sore throat. Respiratory:? Lung CTA bilaterally, no wheezes, rhonchi, or rales Cardiac: RRR, +S1/S2, no murmurs/rubs, pulses palpable and equal in all extremities Gastrointestinal: +Bowel sounds, non-tender to palpation, non-distended Neurologic:? Neurological exam,? The patient is alert, attentive, and oriented x 3. Significant dysarthria .Left sided sided facial droop. .? Motor:Patient not able to move Left extremities. Right extremiies WNL. Muscle bulk and tone are normal. Sensory:No sensation to the left extremities Coordination:Rapid alternating movements and fine finger movements on right extremity intact. ? Skin: No rashes or lesions. No petechiae or purpura. 1er extremity.? Trace pitting edema of right lower extremity. Psychiatric: Normal mood and affect Results Labs 12/29/23 11:18 12/29/23 04:45 Labs: Laboratory Results - last 24 hr 12/28/23 12/28/23 12/28/23 17:32 18:02 23:03 MCV 92.3 MCH 30.2 MCHC 32.8 RDW 12.3 Plt Count 243 MPV 9.8 Immature Gran % (Auto) 0.2 Neut % (Auto) 53.7 Lymph % (Auto) 34.5 [place] % (Auto) 8.5 Eos % (Auto) 2.4 Baso % (Auto) 0.7 Lymph # (Auto) 2.0 [place] # (Auto) 0.5 Eos # (Auto) 0.1 Baso # (Auto) 0.0 Abs Immat Gran (auto) 0.01 Absolute Neuts (auto) 3.2 Absolute Nucleated RBC 0.000 Nucleated RBC % (auto) 0.0 PT 10.0 L INR 0.9 APTT 29.8 Anion Gap 9 L Estim Creat Clear Calc 49.1 Estimated GFR 55 POC Glucose 91 152 H Random Glucose 90 Calcium 9.3 Troponin I High Sens < 2.7 Triglycerides 198 H Cholesterol 187 LDL Cholesterol, Calc 97 HDL Cholesterol 51 Imaging Radiologist's Impressions: Impressions Head CT 12/28/23 17:16 IMPRESSION: No acute intracranial pathology. There is an age indeterminate lacunar infarction within the anterior left canela radiata. Mild microvascular ischemic change. This critical result was discussed with Dr. Stout at 5:49 PM hours on 12/28/2023. It was ascertained that the content and urgency of the report was understood at the time of direct communication. Electronically signed by: Milton Scott DO 12/28/2023 05:[address] 12/28/23 18:59 IMPRESSION: No acute intracranial abnormality. Specifically, there is no intracranial hemorrhage status post the administration of TNK. Mild microvascular ischemic disease. Age indeterminate lacunar infarctions within the basal ganglia and left centrum semiovale. This critical result was discussed with Dr. Mederos at 8:15 PM on 12/28/2023 and it was ascertained that the content and urgency of the report was understood at the time of direct communication. Electronically signed by: Milton Scott DO 12/28/2023 08:16 PM EDT Assessment and Plan (1) CVA (cerebral vascular accident): Status: Acute (2) HTN (hypertension): Status: Acute Plan 78-year-old female past medical history of hypertension and osteoarthritis admitted to ICU for CVA status post TNK Neuro:? CVA:? new onset left upper extremity weakness and left lower extremity weakness,? Initial head CT showed no acute bleed, but did show age indeterminate lacunar infarction within the anterior left canela radiata.? She is status post TNK. ? 1 hour post TNK administration patient developed more neurological symptoms,? repeat CT with no acute changes from previous.? My assessment patient continues? endorse severe headache,? unable to move and feel left upper extremity and left lower extremity.? Will repeat another CT.? Follow Neurology recommendations.? MRI in the morning? Cardiac: ?Underlying history of hypertension:? continue to follow post TNK protocol for BP management Pulmonary: ??No acute issues Renal:?No acute issues Endo:? No acute issues.? GI: No acute issues. heme/onc: No acute issues. Misc:? no acute issues Prophylaxis: No DVT anticoagulation for 24hr post TNK Diet:? NPO CRITICAL CARE TIME: x 60 min Case discussed with? attending Dr. Gibbons?
[2023-12-29] VITALS (22 sets, daily range): BP systolic 85–180; BP diastolic 50–93; PULSE 61–101; RESP 14–28; TEMP 36.4–39.6; O2SAT 90–97; BMI 33.6; BMI 37.4
--- NOTE | 2023-12-29 | ECG_ITS ---
Test Reason : Rhythm check Blood Pressure : / mmHG Vent. Rate : 085 BPM Atrial Rate : 097 BPM P-R Int : 172 ms QRS Dur : 078 ms QT Int : 342 ms P-R-T Axes : -23 -19 147 degrees QTc Int : 406 ms Sinus rhythm with frequent Premature ventricular complexes Inferior infarct , age undetermined ST & T wave abnormality, consider lateral ischemia Abnormal ECG When compared with ECG of 28-DEC-2023 17:57, Premature ventricular complexes are now Present T wave amplitude has decreased in Lateral leads Referred By: Claudy Orantes Electronically Signed By:HAYLIE HILLS
[2023-12-29] MEDS: Acetaminophen 1,000 MG/100 ML PIGGYBACK 400 MG IV ×2 (00:03→18:47)
[2023-12-29] MEDS: ondansetron HCL 4 MG/2 ML VIAL IVPUSH ×2 (00:24→04:20)
[2023-12-29 04:59] LABS: VBG Base Excess -0.1 mmol/L; VBG HCO3 22 mmol/L (22-26); VBG pCO2 32 mmHg; VBG pH 7.45 (7.32-7.43); VBG pO2 27 mmHg
[2023-12-29 05:25] LABS: Albumin Level 4.3 g/dL (3.5-5.0); Anion Gap 15 (12-20); Blood Urea Nitrogen 16 mg/dL (9-16); Calcium 9.7 mg/dL (8.4-10.2); Carbon Dioxide 22 mmol/L (22-29); Chloride 103 mmol/L (96-108); Creatinine Clr Calc Pharmacy 48.7; Estimated Glomerular Filt Rate 54; Glucose Random 178 mg/dL (60-115); Magnesium 1.8 mg/dL (1.6-2.6); Phosphorus 2.3 mg/dL (2.7-4.5); Potassium 4.2 mmol/L (3.3-5.1); Sodium 136 mmol/L (135-145)
[2023-12-29 05:33] LABS: Venous Blood Gas Refer to POC result
[2023-12-29 07:25] LABS: Glucose, Whole Blood 168 mg/dL (60-115)
--- NOTE | 2023-12-29 07:36 | PC.NURSE ---
Late documentation: 2100-PT in ED, vomiting, MD aware, zofran ordered and pt medicated. Pt mouth suctioned and pt cleaned and changed into new clothing. Pt continued to complain of head and neck pain. MD in to see pt and morphine ordered. MD gave water, pt failed swallow eval and had more vomiting, changed again, suctioned and medicated with morphine. Family educated on sx of stroke, care and transfer to ICU process. Claudy [employer] ICU provider in to see pt and family. Claudy ordered head CT. Pt in CT vomiting, stat order for zofran ordered and given. Pt tolerated well and able to get CT. T/W brought pt to ICU. Family speaking to provider and aware of pt being transferred. Pt brought to ICU, t/w assisted X RAY INSPECTOR to transfer and clean pt, incontinent of stool.
--- NOTE | 2023-12-29 08:44 | PHA.MEDREC ---
Addendum entered by Ed Rene 12/29/23 08:51: reviewed Original Note: Pharmacy Consult ? Medication Reconciliation Pharmacy has completed the medication reconciliation.
--- NOTE | 2023-12-29 09:11 | PC.NURSE ---
Addendum entered by Guido Leonard RN 12/29/23 14:02: MRI completed w/o complications. updated family this AM Addendum entered by Guido Leonard RN 12/29/23 10:06: informed md of pt's temp Original Note: per MD, neuro assessment to be done Q4
[2023-12-29 11:33] LABS: Basophils Percent Auto 0.1 % (0-2); Eosinophils Percent Auto 0.1 % (0-4); Hematocrit 44.3 % (37.0-47.0); Hemoglobin 14.8 g/dl (12.0-16.0); Imm Gran Abs Auto 0.06 X10*3/uL (0.00-0.03); Imm Gran Pct Auto 0.5 % (0.0-0.4); Lymphocytes Absolute Auto 0.7 X10*3/uL (1.2-4.9); Lymphocytes Percent Auto 5.8 % (20-40); MANUAL DIFF FLAG SCAN; Mean Corpuscular HGB Conc 33.4 g/dl (31.0-35.0); Mean Corpuscular Hemoglobin 30.6 pg (27.0-33.0); Mean Corpuscular Volume 91.5 fL (80.0-98.0); Monocytes Absolute Auto 0.4 X10*3/uL (0.1-1.2); Monocytes Percent Auto 3.4 % (2-11); Neutrophils Absolute Auto 10.6 x10*3/uL (2.0-8.3); Neutrophils Percent Auto 90.1 % (45-73); Platelet Count 220 X10*3/uL (160-400); Red Blood Count 4.84 X10*6/uL (4.20-5.50); Red Cell Distribution Width 12.3 % (11.0-16.0); SCAN SMEAR FLAG 1; White Blood Count 11.8 X10*3/uL (4.8-10.8)
--- NOTE | 2023-12-29 11:46 | MHC.CM.PN ---
IMM DELIVERED TO DAUGHTER AT BEDSIDE (PT NOT ABLE TO SIGN DUE TO AMS) DAUGHTER VERBALIZES UNDERSTANDING. PT LIVES WITH SPOUSE AND IS INDEPENDENT AT BASELINE. NO SERVICES OR DME. + HCP , FAMILY IS CURRENTLY SEARCHING FOR COPY AND WILL BRING IN. PCP DR. COX. DP:ANTICIPATE PT WILL NEED REHAB ON DC, PENDING P.T. EVAL WHEN STABILIZED. BLS TRANSPORT ANTICIPATED WELL. CM WILL CONTINUE TO FOLLOW FOR ANY CHANGE TO DC PLAN/NEEDS.
[2023-12-29 11:59] LABS: SLIDE REVIEW VERIFIED
--- NOTE | 2023-12-29 12:16 | MHC.SLORD ---
Speech Language Pathology Order Status: JIGGER CROWN POUNCING MACHINE OPERATOR attempted evaluation, however Pt not responsive to gustatory stimulation. Oral preparatory movement minimal, but not absent. Right arm contraction and head tilt to the right noted. Able to release arm tension by manipulation and pillow positioning for the head. Recommend NPO Strict, frequent suctioning, and head position >30 degrees at all times. JIGGER CROWN POUNCING MACHINE OPERATOR on-call tomorrow. Please contact the switch board to initiate call-in, if needed.
--- NOTE | 2023-12-29 12:26 | P.CNNE_ITS ---
History of Present Illness Data of Consult Service Date: 12/29/23 Primary Care Provider: Adam Laboy MD [facility] Reason for consult: Stroke 78 years old woman with history of hypertension came to hospital with sudden onset of left-sided weakness mostly in arm. She was seen in 1st few hours of that in emergency room and after appropriate consideration was treated with TNK and then admitted to ICU. There was no sign of any recent headache or seizure. Post treatment, she did not have much improvement. At this time she was not verbally responsive. Review of Systems 2 Review of Systems: Could not be done with her [facility], [facility] Past Medical History Medical History (Updated 12/29/23 @ 12:30 by Jerardo Kemp MD) Primary osteoarthritis of right knee HTN (hypertension) Social History Social History Household Members: Spouse Housing: House Do you presently have visiting nurse or other home services: No Patient Tobacco Use Status: Former Tobacco user Tobacco use type: Cigarette Smoked in Last 30 Days: No Use of substances other than those prescribed or required for medical reasons: No Currently Displaying Signs/Symptoms of Drug Intoxication Withdrawal: No Have you been hit, kicked, punched, or otherwise hurt by someone within the past year? If so, by whom?: No Do you feel safe in your current relationship?: Yes Is there a partner from a previous relationship who is making you feel unsafe now?: No Are you made to feel afraid or neglected: No Advance Directives: Yes Advance Directives Information Provided: No Advance Directives on File: No Advance Directives Date on File: 12/29/23 Do you have a plan to hurt others: No Plan Recently lost weight without trying: No Nutrition Risks: No Nutritional Risk Patient : No : No Poor oral hygiene: No service: No Current occupational status: retired Current occupation: right handed Meds Allergies Allergy/AdvReac Type Severity Reaction Status Date / Time No Known Allergies Allergy Unknown Verified 12/28/23 17:17 Active Medications: Current Medications Acetaminophen (Acetaminophen 325 Mg Tablet) 650 mg PO Q6H PRN PRN Reason: Pain, Mild (Pain Scale 1-3), fever or headache Labetalol HCl (Labetalol Hcl 100 Mg/20 Ml Vial) 10 mg IVPUSH Q10M PRN; Protocol PRN Reason: SBP > 185 Ondansetron HCl (Ondansetron Hcl 4 Mg/2 Ml Vial) 4 mg IVPUSH Q4H PRN PRN Reason: Nausea and Vomiting Last Admin: 12/29/23 04:20 Dose: 4 mg Home Medications ?Medication ?Instructions ?Recorded ?Confirmed ?Last Taken ?Type lisinopril 10 mg tablet 10 mg PO DAILY 12/29/23 12/29/23 12/28/23 History omeprazole 20 mg capsule,delayed 20 mg PO DAILY@0630 12/29/23 12/29/23 12/28/23 History release Physical Exam 2 Vital Signs: Vital Signs: Last Vital Signs Temp 102.4 F H 12/29/23 09:00 Pulse 93 12/29/23 11:00 Resp 23 H 12/29/23 11:00 BP 142/60 H 12/29/23 11:00 Pulse Ox 90 L 12/29/23 11:00 O2 Del Method Room Air 12/29/23 11:00 BMI result Body Mass Index 37.4 Neuro: Other: She is very lethargic and unresponsive to verbal stimuli. With pain she responded. Eye movements for of roving type with no particular jerking or deviation. Pupils were about 3 mm round reactive. Face seems symmetrical. She was moving her right side but not much of left side. Left plantar was extensor. Results Labs 12/29/23 11:18 12/29/23 04:45 Labs: Short CBC 12/28/23 12/29/23 Range/Units 18:02 11:18 WBC 5.9 11.8 H (4.8-10.8) X10*3/uL Hgb 13.3 14.8 (12.0-16.0) g/dl Hct 40.6 44.3 (37.0-47.0) % Plt Count 243 220 (160-400) X10*3/uL BMP 12/28/23 12/29/23 18:02 04:45 Sodium 137 136 Potassium 4.0 4.2 Chloride 106 103 Carbon Dioxide 26 22 BUN 21 H 16 Creatinine 0.98 0.99 Calcium 9.3 9.7 Liver Function 12/29/23 Range/Units 04:45 Albumin 4.3 (3.5-5.0) g/dL MRI of brain revealed patchy area of ischemic infarction and most of right middle cerebral artery territory. Right carotid was okay on CTA while left carotid origin revealed atherosclerotic disease. EKG revealed sinus rhythm. Assessment and Plan (1) CVA (cerebral vascular accident): Qualifiers: CVA mechanism: embolism Precerebral and cerebral artery: middle cerebral artery Laterality of affected vessel: right Qualified Code(s): I 63.411 - Cerebral infarction due to embolism of right middle cerebral artery Status: Acute 78 years old woman with large patchy right middle cerebral artery infarct. She received TNK and I see that significant infarct is resolved or her less signal on FLAIR. Unfortunately, partly because of the size of the infarct, she is not responsive. Head CT this morning did not reveal any significant hypodensity suggesting that damage was limited. My recommendation is to pay attention to blood pressure and avoid hypotension. Otherwise conservative supportive treatment is recommended including starting her on anti-platelet agent 24 hour after TNK. DVT prophylaxis is also recommended. Further testing to rule out atrial fibrillation is recommended. Procedures Date of Service Date of Service: 12/29/23
[2023-12-29 12:28] LABS: Glucose, Whole Blood 150 mg/dL (60-115)
--- NOTE | 2023-12-29 12:55 | P.PNCC_ITS ---
Subjective Subjective Date of Service: 12/29/23 Interval History: 78-year-old lady with underlying history of hypertension admitted on 12/28/2023 with acute onset of left-sided upper extremity weakness. Head CT with no evidence of bleeding. TNK administered in the emergency room, unfortunately patient with worsening of her underlying symptoms. CT angio head/neck with no large vessel occlusion. Repeat CT head obtained and does not demonstrate intracranial hemorrhage. This a.m. with dense left-sided deficits. Evaluated by neurology service. Critical Care Time (minutes): 0 Physical Exam 2 Vital Signs: Vital Signs: Last Vital Signs Temp 102.4 F H 12/29/23 09:00 Pulse 93 12/29/23 11:00 Resp 23 H 12/29/23 11:00 BP 142/60 H 12/29/23 11:00 Pulse Ox 90 L 12/29/23 11:00 O2 Del Method Room Air 12/29/23 11:00 BMI result Body Mass Index 37.4 Const: General: no acute distress and patient obtunded O rientation/consciousness: patient obtunded Eyes: Sclerae: sclerae normal EOM: EOMs intact bilaterally Neck: Neck: Yes no lymphadenopathy, Yes trachea midline and Yes supple Resp: Effort & Inspection: normal respiratory effort and no respiratory distress Auscultation: clear to auscultation bilaterally Cardio: Rate: regular rate Rhythm: regular rhythm Heart sounds: no gallops, no murmurs and no rubs GI: Palpation (GI): Soft to palpation and Other GI palpation findings present ( Nontender) Auscultation: normal bowel sounds Neuro: Other: Dense left-sided deficits General: patient obtunded Extrem: General: Yes no pedal edema, No clubbing and No cyanosis Objective Data Labs 12/29/23 11:18 12/29/23 04:45 Labs: Laboratory Results - last 24 hr 12/28/23 12/28/23 12/28/23 17:32 18:02 23:03 WBC 5.9 RBC 4.40 Hgb 13.3 Hct 40.6 MCV 92.3 MCH 30.2 MCHC 32.8 RDW 12.3 Plt Count 243 MPV 9.8 Immature Gran % (Auto) 0.2 Neut % (Auto) 53.7 Lymph % (Auto) 34.5 Titus % (Auto) 8.5 Eos % (Auto) 2.4 Baso % (Auto) 0.7 Lymph # (Auto) 2.0 Titus # (Auto) 0.5 Eos # (Auto) 0.1 Baso # (Auto) 0.0 Abs Immat Gran (auto) 0.01 Absolute Neuts (auto) 3.2 Absolute Nucleated RBC 0.000 Nucleated RBC % (auto) 0.0 Smear Tech's Comments PT 10.0 L INR 0.9 APTT 29.8 VBG pH VBG pCO2 VBG pO2 VBG HCO3 VBG O2 Saturation VBG Base Excess Sodium 137 Potassium 4.0 Chloride 106 Carbon Dioxide 26 Anion Gap 9 L BUN 21 H Creatinine 0.98 Estim Creat Clear Calc 49.1 Estimated GFR 55 POC Glucose 91 152 H Random Glucose 90 Calcium 9.3 Phosphorus Magnesium Troponin I High Sens < 2.7 Albumin Triglycerides 198 H Cholesterol 187 LDL Cholesterol, Calc 97 HDL Cholesterol 51 12/29/23 12/29/23 12/29/23 04:45 04:49 07:20 WBC RBC Hgb Hct MCV MCH MCHC RDW Plt Count MPV Immature Gran % (Auto) Neut % (Auto) Lymph % (Auto) Titus % (Auto) Eos % (Auto) Baso % (Auto) Lymph # (Auto) Titus # (Auto) Eos # (Auto) Baso # (Auto) Abs Immat Gran (auto) Absolute Neuts (auto) Absolute Nucleated RBC Nucleated RBC % (auto) Smear Tech's Comments PT INR APTT VBG pH 7.45 H VBG pCO2 32 VBG pO2 27 VBG HCO3 22 VBG O2 Saturation 49.0 VBG Base Excess -0.1 Sodium 136 Potassium 4.2 Chloride 103 Carbon Dioxide 22 Anion Gap 15 BUN 16 Creatinine 0.99 Estim Creat Clear Calc 48.7 Estimated GFR 54 POC Glucose 168 H Random Glucose 178 H Calcium 9.7 Phosphorus 2.3 L Magnesium 1.8 Troponin I High Sens Albumin 4.3 Triglycerides Cholesterol LDL Cholesterol, Calc HDL Cholesterol 12/29/23 12/29/23 11:18 12:23 WBC 11.8 H RBC 4.84 Hgb 14.8 Hct 44.3 MCV 91.5 MCH 30.6 MCHC 33.4 RDW 12.3 Plt Count 220 MPV 10.0 Immature Gran % (Auto) 0.5 H Neut % (Auto) 90.1 H Lymph % (Auto) 5.8 L Titus % (Auto) 3.4 Eos % (Auto) 0.1 Baso % (Auto) 0.1 Lymph # (Auto) 0.7 L Titus # (Auto) 0.4 Eos # (Auto) 0.0 Baso # (Auto) 0.0 Abs Immat Gran (auto) 0.06 H Absolute Neuts (auto) 10.6 H Absolute Nucleated RBC 0.000 Nucleated RBC % (auto) 0.0 Smear Tech's Comments VERIFIED PT INR APTT VBG pH VBG pCO2 VBG pO2 VBG HCO3 VBG O2 Saturation VBG Base Excess Sodium Potassium Chloride Carbon Dioxide Anion Gap BUN Creatinine Estim Creat Clear Calc Estimated GFR POC Glucose 150 H Random Glucose Calcium Phosphorus Magnesium Troponin I High Sens Albumin Triglycerides Cholesterol LDL Cholesterol, Calc HDL Cholesterol Progress Note: A&P Assessment and plan (1) CVA (cerebral vascular accident): Status: Acute (2) HTN (hypertension): Status: Acute Plan Assessment: 78-year-old lady with underlying hypertension admitted with acute CVA, now status post TNK with dense left-sided deficits Plan: Neuro: Acute CVA status post TNK. MRI is pending. No hemorrhage on repeat CT head. Neurology service care appreciated. Continue PT/OT/speech therapy. Cardiac: No acute issues. Pulmonary: No acute issues. Renal: No acute issues. Endo: No acute issues. GI: No acute issues. ID: No acute issues Heme/Onc: No acute issues. Psych: No acute issues. Miscellaneous: No acute issues. Prophylaxis: Heparin Diet: NPO Quality Stroke Does the patient have a stroke diagnosis?: No VTE Prior VTE?: No VTE Risk Level:: Medical - moderate - high VTE Device Contraindication: N/A - Device Ordered VTE Drug Contraindication: Treatment Not Indicated
[2023-12-29] MEDS: Dextrose 5 % and Lactated Ring 1,000 ML 50 ML IVCONT (14:38)
[2023-12-29] MEDS: Piperacillin Sodium/Tazobactam 4.5 GM in 0.9 % Sodium Chloride 100 ML IV ×2 (14:38→22:07)
[2023-12-29] MEDS: Acetaminophen Supp 325 MG SUPP.RECT 975 MG PR (14:49)
[2023-12-29 15:21] LABS: Appearance Urine Clear; Color Urine Yellow; Glucose Urine UA 100 mg/dL (Negative); Leukocyte Esterase Urine Trace (Negative); Nitrite Urine Negative (Negative); Specific Gravity - Urine >= 1.030 (1.005-1.025); UMIC TRIGGER UACC YES; Urine Blood Trace (Negative); Urine Ketones Negative (Negative); Urine Protein 30 (1+) mg/dL (Neg-Trace)
[2023-12-29 15:23] LABS: Bacteria Urine Trace (None Seen); Hyaline Casts Urine 0-2 /LPF (0-2); UACC Culture Trigger YES
[2023-12-29 16:21] LABS: Glucose, Whole Blood 131 mg/dL (60-115)
[2023-12-29] MEDS: Aspirin 300 MG SUPP.RECT PR (17:58)
--- NOTE | 2023-12-29 18:46 | PM.EVENT ---
Event Note Date of Service: 12/29/23 Event Note: The patient a 78-year-old female with a PMH significant for HTN who presented to the ED on 12/28/2023 with acute onset left-sided upper extremity weakness which was concerning for possible CVA. Was given TNK. Patient was downgraded from ICU today; nurse informed had a temperature of 103 degrees when brought to the floor. Patient was given Tylenol VA with no effect, and patient was on empiric Zosyn started earlier today. Has also been tachycardic up to 101 and tachypneic up to 28. Patient seen and evaluated in her room where she is somnolent and minimally responsive to sternal rub. Pupils are equal and reactive. Lungs diminished with mild rhonchi bilaterally. Cause of fever unclear. Will get CBC, BMP, lactic acid, VBG, and CXR. Will add additional coverage with vanco. Will also get critical Care consult. Time Spent With Patient Time: Total time managing care of this patient today ____ minutes.
--- NOTE | 2023-12-29 18:48 | PHA.PROG ---
Admission Date/Time: December 28, 2023 22:47 Indication: Respiratory Weight in k.9 kg Adjusted body weight in Kg: [place] body weight in Kg: Obesity Dosing Indication % IBW: Serum Creatinine - Last 168 Hours 12/28/23 12/29/23 18:02 04:45 Creatinine 0.98 0.99 Estimated CrCl and GFR - Last 168 Hours 12/28/23 12/29/23 18:02 04:45 Estim Creat Clear Calc 49.1 48.7 Estimated GFR 55 54 Vancomycin Loading Dose: 2000 mg x 1 Current Vancomycin Dosing Regimen: 750mg q12h Vancomycin Monitoring using AUC goal of 400 - 600 range with trough as surrogate marker: 485 mg/L Date and Time for next Vancomycin Level to be drawn: 12/29 @1800 Pharmacist Comments on Vancomycin Plan: Will give a loading dose tonight, begin 750mg q12h in the morning for a projected trough of 16.9 mg/L. Follow up level ordered tomorrow before 3rd dose. Vancomycin dosing will take advantage of [employer] as a clinical decision support tool that uses Bayesian modeling to calculate individual patient's pharmacokinetic parameters and forecast the patient's drug concentration time course with the target goal AUC 24 range of 400 - 600 mg/L/hr.
[2023-12-29 19:48] LABS: Venous Blood Gas Refer to POC result
[2023-12-29 19:49] LABS: VBG HCO3 24 mmol/L (22-26); VBG pCO2 31 mmHg; VBG pH 7.49 (7.32-7.43); VBG pO2 42 mmHg
[2023-12-29 19:49] LABS: Hemoglobin 13.4 g/dl (12.0-16.0); Mean Corpuscular HGB Conc 33.5 g/dl (31.0-35.0); Mean Corpuscular Hemoglobin 30.2 pg (27.0-33.0); Mean Corpuscular Volume 90.1 fL (80.0-98.0); Mean Platelet Volume 9.9 fL (9.4-12.3); Platelet Count 243 X10*3/uL (160-400); Red Blood Count 4.44 X10*6/uL (4.20-5.50); Red Cell Distribution Width 12.5 % (11.0-16.0); White Blood Count 12.6 X10*3/uL (4.8-10.8)
[2023-12-29] MEDS: vancomycin/NS 2,000 MG/500 ML PLAST..BAG 250 MG IV (19:53)
[2023-12-29 20:02] LABS: Lactic Acid 1.9 mmol/L (0.5-2.0)
[2023-12-29 20:04] LABS: Anion Gap 14 (12-20); Blood Urea Nitrogen 20 mg/dL (9-16); Calcium 9.2 mg/dL (8.4-10.2); Carbon Dioxide 23 mmol/L (22-29); Chloride 103 mmol/L (96-108); Creatinine Clr Calc Pharmacy 36.2; Estimated Glomerular Filt Rate 36; Glucose Random 149 mg/dL (60-115); Potassium 3.9 mmol/L (3.3-5.1); Sodium 136 mmol/L (135-145)
--- NOTE | 2023-12-29 20:08 | PM.EVENT ---
Documented by User: Claudy Orantes NP 12/29/23 20:19 Event Note Date of Service: 12/29/23 Event Note: The patient is a 78-year-old female with underlying history of hypertension admitted on 12/28/2023 with acute onset of left-sided upper extremity weakness.? Head CT with no evidence of bleeding. CT angio head/neck with no large vessel occlusion.? TNK administered in the emergency room, unfortunately patient with worsening of her underlying symptoms.? She developed a headache, worsening left upper and left lower weakness, ? but was able to speak with a slightly dysarthria. ? Repeat CT head obtained and does not demonstrate intracranial hemorrhage.?? MRI today, multiple acute infarcts primarily located between the major vascular territories of the right cerebral hemisphere as well as a few cortical infarcts within the right occipital lobe.? Today she? became nonverbal,? minimally responsive to painful stimuli.? Neurology,? evaluated patient? and recommends blood pressure control, avoid hypotension.? She was transferred to medical floor,? but? since transfer she developed a fever to 103.3,? tachypneic, and now requiring supplemental oxygenation.? She continues to be minimally responsive to painful stimuli,? is protecting airway . Blood gas 7.49/.? ? Will transfer patient for closely hemodynamic monitoring due to high risk for aspiration ?No evidence of septic shock as lactic is 1.9.? She was started on vanco and Zosyn we will continue Family updated at bedside? Time Spent With Patient Time: Total time managing care of this patient today ____ minutes. Documented by User: Fracisco Gibbons MD 12/29/23 21:08 Event Note Date of Service: 12/29/23
[2023-12-29] MEDS: Lactated Ringers 1,000 ML 999 ML IV (22:10)
[2023-12-29] MEDS: Albumin Human 25 % 100 ML 133.33 ML IV ×2 (22:19→23:06)
[2023-12-29] MEDS: 0.9 % Sodium Chloride Flush 3 ML SYRINGE IVFLUSH (22:27)
--- NOTE | 2023-12-29 22:30 | PM.SEPBOLA4 ---
Sepsis Bolus Exclusion Sepsis Bolus Exclusion CHF/Renal Failure Date of Occurrence: 12/29/23 This patient met severe sepsis criteria due to the following condition(s):: Hypotension In my clinical judgement the administration of 30 ml/kg of crystalloid would be detrimental to this patient due to the patient's following conditions:: Concern for fluid overload Replace the 30 mls/kg with (Zero amount not acceptable and all fluids for severe sepsis must be given at GREATER than 125 mls/hr) *Note: One of the irizarry must be documented Crystalloids amount given in mls: (rate must be at least 150cc/hr): 1,000 Colloids amount given in mls:: 200 At a rate of (must be > 125 cchr):: 133
--- NOTE | 2023-12-29 22:35 | HO.HCP ---
Health Care Proxy Invocation Health Care Proxy Health Care Proxy Invocation Form: Patient sustained acute Stroke yesterday, no longer verbal, unable to make decisions. Patient Manpreet Titus and Daughter, Suzette Chery, will like for patient code status to be switch to no chest compression, but YES to intubation Declaration: I, __Claudy Harmonrosascarrington , on the date cited below, have determined that, Anabel Titus , lacks the capacity to make or communicate, informed health care decision. This determination is made in accordance with accepted standards of medical judgment and pursuant to [place] 201[place], the [facility] Care Proxy Law. The cause, nature, extent and probable duration of the patient's inapacity are described below: Cause:Acute stroke Nature: Extent: Probable Duration of Patient's Incapacity:
[2023-12-29] MEDS: Norepinephrine Bitartrate/D5W 8 MG/250 ML PLAST..BAG 8.99 MG IVCONT (22:41)
[2023-12-29 23:24] LABS: Glucose, Whole Blood 133 mg/dL (60-115)
[2023-12-30] VITALS (27 sets, daily range): BP systolic 116–152; BP diastolic 45–80; PULSE 52–82; RESP 14–94; TEMP 36.3–38.9; O2SAT 92–96; BMI 38.2
[2023-12-30 00:46] LABS: Venous Blood Gas Refer to POC result
[2023-12-30 00:47] LABS: VBG Base Excess 0.3 mmol/L; VBG HCO3 22 mmol/L (22-26); VBG pCO2 27 mmHg; VBG pH 7.51 (7.32-7.43); VBG pO2 96 mmHg
[2023-12-30] MEDS: Piperacillin Sodium/Tazobactam 4.5 GM in 0.9 % Sodium Chloride 100 ML IV ×2 (01:56→07:31)
[2023-12-30] MEDS: Acetaminophen 1,000 MG/100 ML PIGGYBACK 400 MG IV (02:34)
[2023-12-30 05:21] LABS: VBG HCO3 21 mmol/L (22-26); VBG pCO2 27 mmHg; VBG pO2 63 mmHg
[2023-12-30 05:38] LABS: MANUAL DIFF FLAG NO
[2023-12-30 05:41] LABS: Basophils Percent Auto 0.3 % (0-2); Hemoglobin 11.3 g/dl (12.0-16.0); Imm Gran Abs Auto 0.06 X10*3/uL (0.00-0.03); Imm Gran Pct Auto 0.5 % (0.0-0.4); Lymphocytes Absolute Auto 1.9 X10*3/uL (1.2-4.9); Lymphocytes Percent Auto 16.2 % (20-40); Mean Corpuscular HGB Conc 34.2 g/dl (31.0-35.0); Mean Corpuscular Volume 90.4 fL (80.0-98.0); Mean Platelet Volume 10.2 fL (9.4-12.3); Monocytes Absolute Auto 1.2 X10*3/uL (0.1-1.2); Neutrophils Absolute Auto 8.6 x10*3/uL (2.0-8.3); Platelet Count 193 X10*3/uL (160-400); Red Blood Count 3.65 X10*6/uL (4.20-5.50); Red Cell Distribution Width 12.6 % (11.0-16.0); White Blood Count 11.8 X10*3/uL (4.8-10.8)
[2023-12-30 06:04] LABS: Venous Blood Gas Refer to POC result
[2023-12-30 06:06] LABS: Creatinine Clr Calc Pharmacy 45.6; Estimated Glomerular Filt Rate 47; Magnesium 1.8 mg/dL (1.6-2.6); Phosphorus 2.4 mg/dL (2.7-4.5)
[2023-12-30 06:09] LABS: Anion Gap 14 (12-20); Blood Urea Nitrogen 19 mg/dL (9-16); Calcium 8.8 mg/dL (8.4-10.2); Carbon Dioxide 20 mmol/L (22-29); Chloride 105 mmol/L (96-108); Creatinine Clr Calc Pharmacy 46.5; Estimated Glomerular Filt Rate 48; Glucose Random 158 mg/dL (60-115); Potassium 3.2 mmol/L (3.3-5.1); Sodium 136 mmol/L (135-145)
[2023-12-30 07:21] LABS: Glucose, Whole Blood 144 mg/dL (60-115)
[2023-12-30] MEDS: Aspirin 300 MG SUPP.RECT PR (07:32)
[2023-12-30] MEDS: vancomycin HCL 750 MG in 0.9 % Sodium Chloride 250 ML 265 MG IV (07:32)
[2023-12-30] MEDS: Potassium Phosphate/NS 15 MMOL/250 ML PLAST..BAG 62.5 MMOL IV (07:33)
[2023-12-30] MEDS: 0.9 % Sodium Chloride Flush 3 ML SYRINGE IVFLUSH ×2 (07:33→20:31)
--- NOTE | 2023-12-30 10:19 | PM.NEUROCN ---
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 Today she was doing better than yesterday and was awake. She was communicating with family. Review of Systems Review of Systems: No seizure-like episode PMFSH Past Medical History Medical History (Updated 12/29/23 @ 12:30 by Jerardo Kemp MD) Primary osteoarthritis of right knee HTN (hypertension) Social History Social History Household Members: Spouse Housing: House Do you presently have visiting nurse or other home services: No Patient Tobacco Use Status: Former Tobacco user Tobacco use type: Cigarette Smoked in Last 30 Days: No Use of substances other than those prescribed or required for medical reasons: No Currently Displaying Signs/Symptoms of Drug Intoxication Withdrawal: No Have you been hit, kicked, punched, or otherwise hurt by someone within the past year? If so, by whom?: No Do you feel safe in your current relationship?: Yes Is there a partner from a previous relationship who is making you feel unsafe now?: No Are you made to feel afraid or neglected: No Advance Directives: Yes Advance Directives Information Provided: No Advance Directives on File: No Advance Directives Date on File: 12/29/23 Do you have a plan to hurt others: No Plan Recently lost weight without trying: No Nutrition Risks: No Nutritional Risk Patient : No : No Poor oral hygiene: No service: No Current occupational status: retired Current occupation: right handed Meds Allergies Allergy/AdvReac Type Severity Reaction Status Date / Time No Known Allergies Allergy Unknown Verified 12/28/23 17:17 Active Medications: Current Medications Acetaminophen (Acetaminophen 325 Mg Tablet) 650 mg PO Q6H PRN PRN Reason: Pain, Mild (Pain Scale 1-3), fever or headache Acetaminophen (Acetaminophen Supp 325 Mg Supp.Rect) 975 mg FL Q6H PRN PRN Reason: Fever Last Admin: 12/29/23 14:49 Dose: 975 mg Aspirin (Aspirin 300 Mg Supp.Rect) 300 mg FL DAILY ILAN Last Admin: 12/30/23 07:32 Dose: 300 mg Dextrose/Lactated Ringer's (D5lr) 1,000 mls @ 50 mls/hr IVCONT .Q20H [facility] Last Admin: 12/29/23 14:38 Dose: 50 mls/hr Norepinephrine Bitartrate (Levophed) 8 mg in 250 mls @ 0 mls/hr IVCONT .Q0M ILAN; Protocol Last Titration: 12/30/23 06:27 Dose: 0.03 mcg/kg/min, 5.39 mls/hr Potassium Phosphate (Kphos) 15 mmol in 250 mls @ 62.5 mls/hr IV ONCE ONE Stop: 12/30/23 11:59 Last Admin: 12/30/23 07:33 Dose: 62.5 mls/hr Ampicillin Sodium/Sulbactam (Sodium 3 gm/ Sodium Chloride) 100 mls @ 200 mls/hr IV Q6H ILAN Labetalol HCl (Labetalol Hcl 100 Mg/20 Ml Vial) 10 mg IVPUSH Q10M PRN; Protocol PRN Reason: SBP > 185 Ondansetron HCl (Ondansetron Hcl 4 Mg/2 Ml Vial) 4 mg IVPUSH Q4H PRN PRN Reason: Nausea and Vomiting Last Admin: 12/29/23 04:20 Dose: 4 mg Pharmacy Consult (Consult Rx Vancomycin Dosing) 1 each MISCELLANE DAILY PRN PRN Reason: Consult order Sodium Chloride (0.9 % Sodium Chloride Flush 3 Ml Syringe) 3 ml IVFLUSH QSHICHI [facility] Last Admin: 12/30/23 07:33 Dose: 3 ml Home Medications ?Medication ?Instructions ?Recorded ?Confirmed ?Last Taken ?Type lisinopril 10 mg tablet 10 mg PO DAILY 12/29/23 12/29/23 12/28/23 History omeprazole 20 mg capsule,delayed 20 mg PO DAILY@0630 12/29/23 12/29/23 12/28/23 History release Physical Exam Vital Signs: Vital Signs: Last Vital Signs Temp 100.6 F H 12/30/23 10:00 Pulse 72 12/30/23 10:00 Resp 24 H 12/30/23 10:00 BP 143/59 H 12/30/23 10:00 Pulse Ox 93 12/30/23 10:00 O2 Del Method Room Air 12/30/23 10:00 O2 Flow Rate 2 12/30/23 07:00 BMI result Body Mass Index 38.2 Neuro: Other: Somewhat drowsy but able to open eyes and follow simple commands. She told me names of her children who were standing next to bed and she recognize them. There was significant left hemispatial neglect and left hemianopsia. She could not move her left arm and was withdrawing with left leg. Results Labs 12/30/23 05:04 12/30/23 05:04 Labs: Short CBC 12/29/23 12/29/23 12/30/23 Range/Units 11:18 19:38 05:04 WBC 11.8 H 12.6 H 11.8 H (4.8-10.8) X10*3/uL Hgb 14.8 13.4 11.3 L (12.0-16.0) g/dl Hct 44.3 40.0 33.0 L (37.0-47.0) % Plt Count 220 243 193 (160-400) X10*3/uL BMP 12/29/23 12/30/23 12/30/23 19:38 05:04 05:04 Sodium 136 136 Potassium 3.9 3.2 L Chloride 103 105 Carbon Dioxide 23 20 L BUN 20 H 19 H Creatinine 1.41 H 1.12 1.11 Calcium 9.2 8.8 Liver Function 12/29/23 12/30/23 Range/Units 19:38 05:04 Albumin 4.0 4.0 (3.5-5.0) g/dL Urine 12/29/23 Range/Units 15:00 Urine Color Yellow Urine Appearance Clear Urine pH 6.0 (5.0-9.0) Ur Specific [place] >= 1.030 H (1.005-1.025) Urine Protein 30 (1+) H (Neg-Trace) mg/dL Urine Glucose (UA) 100 H (Negative) mg/dL Assessment and Plan (1) CVA (cerebral vascular accident): Qualifiers: CVA mechanism: embolism Laterality of affected vessel: right Precerebral and cerebral artery: middle cerebral artery Qualified Code(s): I63.411 - Cerebral infarction due to embolism of right middle cerebral artery Status: Acute Relatively large right middle cerebral artery infarct with left hemiparesis, arm or the leg, and left hemianopsia with spatial neglect. Her daughter was educated about her situation. At this time, my recommendation is to put her on baby aspirin and clopidogrel 75 mg daily with statin. Blood pressure management is the case to avoid hypotension. Appropriate hydration and investigation of mild fever she has is recommended. Infection and hypotension can make her situation worse. Procedures Date of Service Date of Service: 12/30/23
[2023-12-30] MEDS: Ampicillin Sodium/Sulbactam Na 3 GM in 0.9 % Sodium Chloride 100 ML IV ×3 (10:47→20:31)
[2023-12-30] MEDS: Dextrose 5 % and Lactated Ring 1,000 ML 50 ML IVCONT (10:47)
--- NOTE | 2023-12-30 12:20 | P.PNCC_ITS ---
Subjective Subjective Date of Service: 12/30/23 Interval History: 78-year-old lady with underlying history of hypertension admitted on 12/28/2023 with acute onset of left-sided upper extremity weakness. Head CT with no evidence of bleeding. TNK administered in the emergency room, unfortunately patient with worsening of her underlying symptoms. CT angio head/neck with no large vessel occlusion. Repeat CT head obtained and does not demonstrate intracranial hemorrhage. This a.m. with dense left-sided deficits. Evaluated by neurology service. Transferred to telemetry on 12/29/2023. Overnight with waxing and waning symptoms including alteration of mental status, transferred back to intensive care unit for close monitoring. This a.m. with significant improvement mental status, following commands and answering questions. Critical Care Time (minutes): 0 Physical Exam 2 Vital Signs: Vital Signs: Last Vital Signs Temp 99.8 F 12/30/23 11:00 Pulse 55 12/30/23 11:00 Resp 20 12/30/23 11:00 BP 118/47 L 12/30/23 11:00 Pulse Ox 92 12/30/23 11:00 O2 Del Method Room Air 12/30/23 11:00 O2 Flow Rate 2 12/30/23 07:00 BMI result Body Mass Index 38.2 Const: General: no acute distress, alert and awake Eyes: Sclerae: sclerae normal EOM: EOMs intact bilaterally Neck: Neck: Yes no lymphadenopathy, Yes trachea midline and Yes supple Resp: Effort & Inspection: normal respiratory effort and no respiratory distress Auscultation: clear to auscultation bilaterally Cardio: Rate: regular rate Rhythm: regular rhythm Heart sounds: no gallops, no murmurs and no rubs GI: Palpation (GI): Soft to palpation and Other GI palpation findings present ( Nontender) Auscultation: normal bowel sounds Neuro: Other: Left-sided paresis Extrem: General: Yes no pedal edema, No clubbing and No cyanosis Objective Data Labs 12/30/23 05:04 12/30/23 05:04 Labs: Laboratory Results - last 24 hr 12/29/23 12/29/23 12/29/23 12:23 15:00 16:11 WBC RBC Hgb Hct MCV MCH MCHC RDW Plt Count MPV Immature Gran % (Auto) Neut % (Auto) Lymph % (Auto) [place] % (Auto) Eos % (Auto) Baso % (Auto) Lymph # (Auto) [place] # (Auto) Eos # (Auto) Baso # (Auto) Abs Immat Gran (auto) Absolute Neuts (auto) Absolute Nucleated RBC Nucleated RBC % (auto) VBG pH VBG pCO2 VBG pO2 VBG HCO3 VBG O2 Saturation VBG Base Excess Sodium Potassium Chloride Carbon Dioxide Anion Gap BUN Creatinine Estim Creat Clear Calc Estimated GFR POC Glucose 150 H 131 H Random Glucose Lactic Acid Calcium Phosphorus Magnesium Albumin Urine Color Yellow Urine Appearance Clear Urine pH 6.0 Ur Specific [employer] >= 1.030 H Urine Protein 30 (1+) H Urine Glucose (UA) 100 H Urine Ketones Negative Urine Blood Trace H Urine Nitrite Negative Ur Leukocyte Esterase Trace H Urine RBC 3-5 H Urine WBC 6-10 H Ur Squamous Epith Cells 3-5 Urine Bacteria Trace Hyaline Casts 0-2 12/29/23 12/29/23 12/29/23 19:37 19:38 19:45 WBC 12.6 H RBC 4.44 Hgb 13.4 Hct 40.0 MCV 90.1 MCH 30.2 MCHC 33.5 RDW 12.5 Plt Count 243 MPV 9.9 Immature Gran % (Auto) Neut % (Auto) Lymph % (Auto) [place] % (Auto) Eos % (Auto) Baso % (Auto) Lymph # (Auto) [place] # (Auto) Eos # (Auto) Baso # (Auto) Abs Immat Gran (auto) Absolute Neuts (auto) Absolute Nucleated RBC 0.000 Nucleated RBC % (auto) 0.0 VBG pH 7.49 H VBG pCO2 31 VBG pO2 42 VBG HCO3 24 VBG O2 Saturation 74.0 VBG Base Excess 2.0 Sodium 136 Potassium 3.9 Chloride 103 Carbon Dioxide 23 Anion Gap 14 BUN 20 H Creatinine 1.41 H Estim Creat Clear Calc 36.2 Estimated GFR 36 POC Glucose Random Glucose 149 H Lactic Acid 1.9 Calcium 9.2 Phosphorus Magnesium Albumin 4.0 Urine Color Urine Appearance Urine pH Ur Specific [employer] Urine Protein Urine Glucose (UA) Urine Ketones Urine Blood Urine Nitrite Ur Leukocyte Esterase Urine RBC Urine WBC Ur Squamous Epith Cells Urine Bacteria Hyaline Casts 12/29/23 12/30/23 12/30/23 23:16 00:42 05:04 WBC 11.8 H RBC 3.65 L Hgb 11.3 L Hct 33.0 L MCV 90.4 MCH 31.0 MCHC 34.2 RDW 12.6 Plt Count 193 MPV 10.2 Immature Gran % (Auto) 0.5 H Neut % (Auto) 73.0 Lymph % (Auto) 16.2 L [place] % (Auto) 10.0 Eos % (Auto) 0.0 Baso % (Auto) 0.3 Lymph # (Auto) 1.9 [place] # (Auto) 1.2 Eos # (Auto) 0.0 Baso # (Auto) 0.0 Abs Immat Gran (auto) 0.06 H Absolute Neuts (auto) 8.6 H Absolute Nucleated RBC 0.000 Nucleated RBC % (auto) 0.0 VBG pH 7.51 H VBG pCO2 27 VBG pO2 96 VBG HCO3 22 VBG O2 Saturation 100.0 VBG Base Excess 0.3 Sodium 136 Potassium 3.2 L Chloride 105 Carbon Dioxide 20 L Anion Gap 14 BUN 19 H Creatinine 1.12 Estim Creat Clear Calc Estimated GFR POC Glucose 133 H Random Glucose Lactic Acid Calcium Phosphorus Magnesium Albumin Urine Color Urine Appearance Urine pH Ur Specific [employer] Urine Protein Urine Glucose (UA) Urine Ketones Urine Blood Urine Nitrite Ur Leukocyte Esterase Urine RBC Urine WBC Ur Squamous Epith Cells Urine Bacteria Hyaline Casts 12/30/23 12/30/23 12/30/23 05:04 05:04 05:04 WBC RBC Hgb Hct MCV MCH MCHC RDW Plt Count MPV Immature Gran % (Auto) Neut % (Auto) Lymph % (Auto) [place] % (Auto) Eos % (Auto) Baso % (Auto) Lymph # (Auto) [place] # (Auto) Eos # (Auto) Baso # (Auto) Abs Immat Gran (auto) Absolute Neuts (auto) Absolute Nucleated RBC Nucleated RBC % (auto) VBG pH VBG pCO2 VBG pO2 VBG HCO3 VBG O2 Saturation VBG Base Excess Sodium Potassium Chloride Carbon Dioxide Anion Gap BUN Creatinine 1.11 Estim Creat Clear Calc 45.6 46.5 Estimated GFR 47 48 POC Glucose Random Glucose 158 H Lactic Acid Calcium 8.8 Phosphorus 2.4 L Magnesium 1.8 Albumin 4.0 Urine Color Urine Appearance Urine pH Ur Specific [employer] Urine Protein Urine Glucose (UA) Urine Ketones Urine Blood Urine Nitrite Ur Leukocyte Esterase Urine RBC Urine WBC Ur Squamous Epith Cells Urine Bacteria Hyaline Casts 12/30/23 12/30/23 05:11 07:16 WBC RBC Hgb Hct MCV MCH MCHC RDW Plt Count MPV Immature Gran % (Auto) Neut % (Auto) Lymph % (Auto) [place] % (Auto) Eos % (Auto) Baso % (Auto) Lymph # (Auto) [place] # (Auto) Eos # (Auto) Baso # (Auto) Abs Immat Gran (auto) Absolute Neuts (auto) Absolute Nucleated RBC Nucleated RBC % (auto) VBG pH 7.50 H VBG pCO2 27 VBG pO2 63 VBG HCO3 21 L VBG O2 Saturation 92.0 VBG Base Excess 0.0 Sodium Potassium Chloride Carbon Dioxide Anion Gap BUN Creatinine Estim Creat Clear Calc Estimated GFR POC Glucose 144 H Random Glucose Lactic Acid Calcium Phosphorus Magnesium Albumin Urine Color Urine Appearance Urine pH Ur Specific [employer] Urine Protein Urine Glucose (UA) Urine Ketones Urine Blood Urine Nitrite Ur Leukocyte Esterase Urine RBC Urine WBC Ur Squamous Epith Cells Urine Bacteria Hyaline Casts Progress Note: A&P Assessment and plan (1) CVA (cerebral vascular accident): Status: Acute (2) HTN (hypertension): Status: Acute Plan Assessment: 78-year-old lady with underlying hypertension admitted with acute CVA, now status post TNK with dense left-sided deficits Plan: Neuro: Acute CVA status post TNK. MRI with multiple right-sided infarcts and small mid/lower brain petechial hemorrhagic. Neurology service care appreciated. Continue PT/OT/speech therapy. Start ASA/Plavix/statin as per Neurology recommendation. Cardiac: No acute issues. Pulmonary: No acute issues. Renal: No acute issues. Endo: No acute issues. GI: No acute issues. ID: No acute issues Heme/Onc: No acute issues. Psych: No acute issues. Miscellaneous: No acute issues. Prophylaxis: Heparin Diet: Pending speech evaluation. Quality Stroke Does the patient have a stroke diagnosis?: No VTE Prior VTE?: No VTE Risk Level:: Medical - moderate - high VTE Device Contraindication: N/A - Device Ordered VTE Drug Contraindication: Treatment Not Indicated
[2023-12-30 12:55] LABS: Glucose, Whole Blood 116 mg/dL (60-115)
--- NOTE | 2023-12-30 13:38 | MHC.SPEECHCO ---
Recommending initiate diet of Puree Solids (NDD1) and Thin Liquids with 1:1 Feeding Assist. Thin Liquids via Ice Chip or Spoon only. Ensure proper positioning and alertness prior to PO administration. Meds Crushed in Puree. PASTE MIXER following closely.
[2023-12-30] MEDS: Clopidogrel Bisulfate 75 MG TABLET PO (13:42)
[2023-12-30] MEDS: Atorvastatin Calcium 40 MG TABLET PO (13:42)
[2023-12-30 16:28] LABS: Glucose, Whole Blood 109 mg/dL (60-115)
[2023-12-30 21:03] LABS: Glucose, Whole Blood 112 mg/dL (60-115)
[2023-12-31] VITALS (21 sets, daily range): BP systolic 107–172; BP diastolic 42–79; PULSE 51–72; RESP 11–27; TEMP 36–36.8; O2SAT 91–97; BMI 38.0
[2023-12-31] MEDS: Ampicillin Sodium/Sulbactam Na 3 GM in 0.9 % Sodium Chloride 100 ML IV ×4 (03:20→21:35)
[2023-12-31] MEDS: Acetaminophen 325 MG TABLET 650 MG PO (05:22)
[2023-12-31 05:45] LABS: MANUAL DIFF FLAG NO
[2023-12-31 05:47] LABS: Basophils Percent Auto 0.4 % (0-2); Eosinophils Percent Auto 0.5 % (0-4); Hemoglobin 11.1 g/dl (12.0-16.0); Imm Gran Abs Auto 0.03 X10*3/uL (0.00-0.03); Imm Gran Pct Auto 0.4 % (0.0-0.4); Lymphocytes Absolute Auto 1.7 X10*3/uL (1.2-4.9); Lymphocytes Percent Auto 21.9 % (20-40); Mean Corpuscular HGB Conc 32.6 g/dl (31.0-35.0); Mean Corpuscular Hemoglobin 30.2 pg (27.0-33.0); Mean Corpuscular Volume 92.4 fL (80.0-98.0); Mean Platelet Volume 9.8 fL (9.4-12.3); Monocytes Absolute Auto 0.5 X10*3/uL (0.1-1.2); Monocytes Percent Auto 6.6 % (2-11); Neutrophils Absolute Auto 5.4 x10*3/uL (2.0-8.3); Neutrophils Percent Auto 70.2 % (45-73); Platelet Count 150 X10*3/uL (160-400); Red Blood Count 3.68 X10*6/uL (4.20-5.50); Red Cell Distribution Width 12.8 % (11.0-16.0); White Blood Count 7.7 X10*3/uL (4.8-10.8)
[2023-12-31 06:05] LABS: Anion Gap 10 (12-20); Blood Urea Nitrogen 13 mg/dL (9-16); Calcium 8.4 mg/dL (8.4-10.2); Carbon Dioxide 24 mmol/L (22-29); Chloride 110 mmol/L (96-108); Creatinine Clr Calc Pharmacy 65.4; Estimated Glomerular Filt Rate > 60; Glucose Random 122 mg/dL (60-115); Magnesium 2.1 mg/dL (1.6-2.6); Phosphorus 2.8 mg/dL (2.7-4.5); Potassium 3.4 mmol/L (3.3-5.1); Sodium 141 mmol/L (135-145)
[2023-12-31] MEDS: Dextrose 5 % and Lactated Ring 1,000 ML 50 ML IVCONT (07:22)
[2023-12-31] MEDS: 0.9 % Sodium Chloride Flush 3 ML SYRINGE IVFLUSH ×2 (07:23→15:35)
[2023-12-31] MEDS: Potassium Chloride Packet 20 MEQ PACKET 40 MEQ PO (07:31)
[2023-12-31 07:51] LABS: Glucose, Whole Blood 125 mg/dL (60-115)
[2023-12-31] MEDS: Aspirin 300 MG SUPP.RECT PR (08:00)
[2023-12-31] MEDS: Atorvastatin Calcium 40 MG TABLET PO (08:01)
[2023-12-31] MEDS: Clopidogrel Bisulfate 75 MG TABLET PO (08:01)
[2023-12-31 08:58] LABS: Prothrombin Time Whole Bld POC 11.5 sec (11.1-13.5)
[2023-12-31 12:06] LABS: Glucose, Whole Blood 135 mg/dL (60-115)
--- NOTE | 2023-12-31 12:34 | PM.CCPN ---
Subjective Subjective Date of Service: 12/31/23 Critical Care Time (minutes): 40 Comment: No new events overnight No further worsening in neurological status Physical Exam Vital Signs: Vital Signs: Last Vital Signs Temp 97.0 F 12/31/23 07:00 Pulse 56 12/31/23 12:00 Resp 25 H 12/31/23 12:00 BP 150/72 H 12/31/23 12:00 Pulse Ox 97 12/31/23 12:00 O2 Del Method Room Air 12/31/23 12:00 O2 Flow Rate 2 12/30/23 16:00 BMI result Body Mass Index 38.0 General: Not in acute distress, ill appearing Nutritional Appearance: well nourished and overweight Eyes: appearance normal, both eyes and all related structures; Alignment and Position: alignment normal and position normal Neck: No lymphadenopathy, no thyromegaly Resp: bilateral air entry equal, crackles heard in the lung bases Cardio: Regular rate, regular rhythm; Heart sounds: S1 normal heart sound present and S2 normal heart sound present GI: soft, nontender, no guarding, no hepatosplenomegaly : bladder normal to inspection, bladder normal to palpation, no renal angle tenderness Skin: no rashes or lesions noted and elasticity normal Neuro: Right upper and lower extremity hemiplegia with 0 / 5 power Objective Data Labs 12/31/23 05:17 12/31/23 05:17 Labs: Laboratory Results - last 24 hr 12/28/23 12/30/23 12/30/23 17:32 12:38 16:24 WBC RBC Hgb Hct MCV MCH MCHC RDW Plt Count MPV Immature Gran % (Auto) Neut % (Auto) Lymph % (Auto) [place] % (Auto) Eos % (Auto) Baso % (Auto) Lymph # (Auto) [place] # (Auto) Eos # (Auto) Baso # (Auto) Abs Immat Gran (auto) Absolute Neuts (auto) Absolute Nucleated RBC Nucleated RBC % (auto) Whole Blood PT 11.5 Whole Blood INR 1.0 Sodium Potassium Chloride Carbon Dioxide Anion Gap BUN Creatinine Estim Creat Clear Calc Estimated GFR POC Glucose 116 H 109 Random Glucose Calcium Phosphorus Magnesium 12/30/23 12/31/23 12/31/23 21:00 05:17 07:47 WBC 7.7 RBC 3.68 L Hgb 11.1 L Hct 34.0 L MCV 92.4 MCH 30.2 MCHC 32.6 RDW 12.8 Plt Count 150 L MPV 9.8 Immature Gran % (Auto) 0.4 Neut % (Auto) 70.2 Lymph % (Auto) 21.9 [place] % (Auto) 6.6 Eos % (Auto) 0.5 Baso % (Auto) 0.4 Lymph # (Auto) 1.7 [place] # (Auto) 0.5 Eos # (Auto) 0.0 Baso # (Auto) 0.0 Abs Immat Gran (auto) 0.03 Absolute Neuts (auto) 5.4 Absolute Nucleated RBC 0.000 Nucleated RBC % (auto) 0.0 Whole Blood PT Whole Blood INR Sodium 141 Potassium 3.4 Chloride 110 H Carbon Dioxide 24 Anion Gap 10 L BUN 13 Creatinine 0.79 Estim Creat Clear Calc 65.4 Estimated GFR > 60 POC Glucose 112 125 H Random Glucose 122 H Calcium 8.4 Phosphorus 2.8 Magnesium 2.1 12/31/23 12:02 WBC RBC Hgb Hct MCV MCH MCHC RDW Plt Count MPV Immature Gran % (Auto) Neut % (Auto) Lymph % (Auto) [place] % (Auto) Eos % (Auto) Baso % (Auto) Lymph # (Auto) [place] # (Auto) Eos # (Auto) Baso # (Auto) Abs Immat Gran (auto) Absolute Neuts (auto) Absolute Nucleated RBC Nucleated RBC % (auto) Whole Blood PT Whole Blood INR Sodium Potassium Chloride Carbon Dioxide Anion Gap BUN Creatinine Estim Creat Clear Calc Estimated GFR POC Glucose 135 H Random Glucose Calcium Phosphorus Magnesium Microbiology Microbiology Results: Microbiology 12/29/23 Unknown Urine clean catch - Clean Catch Midstream Urine Culture - Final 12/29/23 19:38 Blood - Venous Blood Culture - Preliminary No growth after 24 hours. 12/29/23 19:38 Blood - Venous Blood Culture - Preliminary No growth after 24 hours. Progress Note: A&P Assessment and plan (1) HTN (hypertension): Status: Acute (2) CVA (cerebral vascular accident): Status: Acute (3) Aspiration pneumonia: Status: Acute Plan 78-year-old lady with underlying history of hypertension admitted on 12/28/2023 with acute onset of left-sided upper extremity weakness. Head CT with no evidence of bleeding. TNK administered in the emergency room, unfortunately patient with worsening of her underlying symptoms. CT angio head/neck with no large vessel occlusion. Repeat CT head obtained and does not demonstrate intracranial hemorrhage. On 12/29/2023 she developed dense left-sided deficits as she had waxing and waning symptoms including alteration of mental status, transferred back to intensive care unit for close monitoring. Cerebrovascular accident: MRI of the brain showing multiple right-sided multi vascular territory infarcts with evidence of underlying chronic infarcts She is status post TNK on 12/28/2023 Followed by neurology Continue aspirin, Plavix and atorvastatin Hypertension: We will allow permissive hypertension On as needed p.r.n. labetalol At home she is on 10 mg of lisinopril Aspiration pneumonia: On amp sulbactam Prophylaxis: SCD Holding off on heparin as she has microhemorrhages on MRI Quality Stroke Does the patient have a stroke diagnosis?: No VTE Prior VTE?: No VTE Risk Level:: Medical - moderate - high VTE Device Contraindication: N/A - Device Ordered VTE Drug Contraindication: Treatment Not Indicated
--- NOTE | 2023-12-31 13:17 | MHC.SL.SWA ---
Speech Pathologist Impression: Moderate oropharyngeal dysphagia d/t L sided sensory/motor weakness Risk of Aspiration Due to: Ease of fatigue Medically Fragile Neurological Condition Poor PO Intake Hx of Recent Extubation Weak Cough Dysphasia Diet Status: EMBEDDED SYSTEMS ENGINEER recommending diet of Puree Solids and Thin Liquids by cup or straw. Pt able to feed herself/sip from straw when holding cup in R hand. Needs assist with all PO. Essential oral medications Crushed in Puree. Ensure aspiration precautions, upright positioning, cue pt to elicit volitional swallow, slow pacing of PO intake and encourage pt to alternate consistencies. Pt biting L side of tongue without sensation. Check mouth for pocketing s/p PO intake. EMBEDDED SYSTEMS ENGINEER will continue to follow. Liquid Consistency and Strategies for Safe Swallow: Liquid Intake Recommendation: Thin Liquid Intake Strategies: Small Sips Liquids by Straw ok Solid Food Consistency: Dietary Recommendations: Pureed (NDD1) Additional Modifications to Solid Foods: Oral Medication Intake: Crushed with Puree Please contact the pharmacy regarding appropriate crushable or liquid drug formulations that are available whenever modified delivery is recommended. Compensatory Strategies and Precautions to be Taken for Safe Swallow: Sitting Upright (90 deg) Double Swallow Liquids from Cup Liquids from Straw Small Bites and Sips Alternate Liquids/Solids Rate of Ingestion Change Oral Check Supervision While Eating and Drinking for Safe Swallow: Total Assistance (1:1) Foods to Avoid: Swallowing Recommended Treatments: Compens. Strategy Educat. Recommendation for Speech: Inpatient Speech Therapy Speech Therapy through Rehab Facility Comment: Frequency/Duration: Daily Date Range for Service Req: Admission Timeline to reassess: PRN Small Stock Facer Clinican/Clinical Fellow: No Supervisory Statement: I have reviewed and agree with the student/clinical fellow's documentation: N/A Speech Language Pathologist: Maritza Abbott M.S. [facility]-EMBEDDED SYSTEMS ENGINEER
--- NOTE | 2023-12-31 13:31 | MHC.CM.PN ---
Pt continues care in ICU s/p TNK for suspected CVA: Left sided neglect: PT/OT evals completed: acute rehabs are reviewing for post d/c placement. CM to follow
--- NOTE | 2023-12-31 14:38 | MHC.STROKE ---
With with patient and son in room 254. Pt awake, alert, oriented however doesn't remember events from yesterday. Pt is sitting in recliner, Unable to move her left arm/leg. Slight left side facial droop. Pt is engaged in conversation and answering questions appropriately. Stroke Education provided to patient and son. We discussed risk factors/previous medications. Pt/son aware and agreeable to care plan. States no questions at this time. Will continue to assist as needed.
[2023-12-31 16:16] LABS: Glucose, Whole Blood 103 mg/dL (60-115)
--- NOTE | 2023-12-31 18:46 | PC.NURSE ---
p: alteration in neuro i: per nursing care plan e: pt continues with L sided deficit. LUE and LLE flaccied. withdraws to pain in left food. pt turned and repositioned Q2 and as requested. dr. montesinos updated as needed. pt transferred to [facility] at 1848
[2023-12-31 21:27] LABS: Glucose, Whole Blood 118 mg/dL (60-115)
[2024-01-01] MEDS: Ampicillin Sodium/Sulbactam Na 3 GM in 0.9 % Sodium Chloride 100 ML IV ×2 (03:25→08:12)
[2024-01-01] MEDS: Dextrose 5 % and Lactated Ring 1,000 ML 50 ML IVCONT (03:31)
[2024-01-01 03:58] VITALS: BP 160/80; PULSE 69; RESP 20; TEMP 36.5; O2SAT 94
[2024-01-01 04:47] VITALS: BMI 35.4
[2024-01-01] MEDS: Omeprazole 20 MG CAPSULE.DR PO (06:08)
[2024-01-01 06:53] LABS: Hemoglobin 11.8 g/dl (12.0-16.0); Mean Corpuscular HGB Conc 33.7 g/dl (31.0-35.0); Mean Corpuscular Hemoglobin 30.9 pg (27.0-33.0); Mean Corpuscular Volume 91.6 fL (80.0-98.0); Platelet Count 155 X10*3/uL (160-400); Red Blood Count 3.82 X10*6/uL (4.20-5.50); Red Cell Distribution Width 12.5 % (11.0-16.0); White Blood Count 8.7 X10*3/uL (4.8-10.8)
[2024-01-01 07:01] LABS: Anion Gap 11 (12-20); Blood Urea Nitrogen 10 mg/dL (9-16); Calcium 8.8 mg/dL (8.4-10.2); Carbon Dioxide 26 mmol/L (22-29); Chloride 107 mmol/L (96-108); Creatinine Clr Calc Pharmacy 67.8; Estimated Glomerular Filt Rate > 60; Glucose Random 120 mg/dL (60-115); Potassium 3.2 mmol/L (3.3-5.1); Sodium 141 mmol/L (135-145)
[2024-01-01 08:00] VITALS: BP 170/80; PULSE 68; RESP 18; TEMP 36.6; O2SAT 94
[2024-01-01] MEDS: Clopidogrel Bisulfate 75 MG TABLET PO (08:13)
[2024-01-01] MEDS: Atorvastatin Calcium 40 MG TABLET PO (08:13)
[2024-01-01] MEDS: 0.9 % Sodium Chloride Flush 3 ML SYRINGE IVFLUSH (08:13)
[2024-01-01] MEDS: Potassium Chloride Packet 20 MEQ PACKET 40 MEQ PO (08:13)
[2024-01-01 08:25] LABS: Glucose, Whole Blood 113 mg/dL (60-115)
[2024-01-01 10:03] VITALS: BP 170/80; PULSE 68; O2SAT 94
--- NOTE | 2024-01-01 10:27 | MHC.SL.SWA ---
Speech Pathologist Impression: Mild to moderate oral and mild pharyngeal dysphagia secondary to CVA Risk of Aspiration Due to: Lethargy Medically Fragile Neurological Condition Poor PO Intake Hx of Recent Extubation Weak Cough Dysphasia Diet Status: INFORMATION SECURITY ANALYST recommending diet of Puree Solids and Thin liquids, upright positioning during PO intake and for 30 minutes following, slow pacing. Assist pt with setup as she is able to feed herself using R hand. L sided facial weakness resolving, strengthening exercises reviewed. Pt with good return for lip, jaw and cheek exercises. No dysarthria of speech production. ST to follow, will advance diet as appropriate. Liquid Consistency and Strategies for Safe Swallow: Liquid Intake Recommendation: Thin Liquid Intake Strategies: Small Sips No Straws Liquids by Teaspoon Only Solid Food Consistency: Dietary Recommendations: Pureed (NDD1) Additional Modifications to Solid Foods: Oral Medication Intake: Crushed with Puree Please contact the pharmacy regarding appropriate crushable or liquid drug formulations that are available whenever modified delivery is recommended. Compensatory Strategies and Precautions to be Taken for Safe Swallow: Sitting Upright (90 deg) Double Swallow Liquids from Cup Liquids from Straw Small Bites and Sips Alternate Liquids/Solids Rate of Ingestion Change Oral Check Supervision While Eating and Drinking for Safe Swallow: Total Assistance (1:1) Foods to Avoid: Swallowing Recommended Treatments: Compens. Strategy Educat. Recommendation for Speech: Inpatient Speech Therapy Speech Therapy through Rehab Facility Comment: Frequency/Duration: Daily Date Range for Service Req: Admission Timeline to reassess: PRN Roofing Laborer Clinican/Clinical Fellow: No Supervisory Statement: I have reviewed and agree with the student/clinical fellow's documentation: N/A Speech Language Pathologist: Maritza Abbott M.S. [facility]-INFORMATION SECURITY ANALYST
--- NOTE | 2024-01-01 10:54 | MHC.CM.PN ---
Per ROUNDS discussion, Patient is medically cleared for dc to Acute Rehab today. Patient will dc to her first choice facility/[facility] today at 1PM, via [facility].CM met with Patient and her Daughter at bedside and addressed IMM with them(original was given to Daughter and a copy has been placed on the chart).
[2024-01-01 11:40] VITALS: PULSE 62; RESP 18; TEMP 36.9; O2SAT 94
--- NOTE | 2024-01-01 11:47 | P.DS_ITS ---
DS: Providers Provider Date of Service: 01/01/24 Date of admission: 12/28/23 22:47 Date of discharge: 01/01/24 Primary care physician: Adam Laboy MD Consults: 12/28/23 22:48 Consult to Neurology Routine Consulting Provider: [facility] Reason for consultation: CVA s/p TNK 12/29/23 18:49 Consult to Critical Care Routine Consulting Provider: Fracisco Gibbons Reason for consultation: lethargic ,encepahlopathic ,sirs Has provider been notified: No DS: Diagnosis Discharge Diagnosis (1) HTN (hypertension): Status: Acute (2) CVA (cerebral vascular accident): Status: Acute (3) Aspiration pneumonia: Status: Acute DS: Summary Hospital Course Hospital Course: Admission note HPI by ICU provider ?The patient is a 78-year-old female past medical history of hypertension and osteoarthritis? who presented to the emergency department? for left upper extremity weakness.? According to patient and the daughter about an hour and a half prior to arriving to the emergency department,? patient developed weakness of the left upper extremity,? she fell left leg feels heavy,? but was able to ambulate to the bathroom,? but did have difficulty ambulating to the emergency department.? Head CT was performed,? no acute bleed, but did show age indeterminate lacunar infarction within the anterior left canela radiata.? CTA with no large vessel occlusion. Neurology, Dr Kemp,? consulted who advises okay to give TNK.? TNK administered 1729.? 1 hour after TNK administration,? patient developed speech difficulty, facial droop, slightly more confused, reporting a headache,? and worsening left upper and lower extremity weakness.? Head CT was repeated, ? with no changes from pr evious.? Neurology advised for MRI in the morning.? ?Patient will be admitted to ICU for hemodynamic monitoring of CVA status post TNK Hospital course # Acute Cerebrovascular accident w Acute left MCA stroke she presented mainly with LUE weakness. CT head did not show any bleeding. received TNK on 12/28/2023. after TNK on 12/28/2023 as she developed speech difficulty, facial droop, slightly more confused, reporting a headache,? and worsening left upper and lower extremity weakness. Acute left MCA stroke as MRI of the brain showing multiple right-sided multi vascular territory infarcts with evidence of underlying chronic infarcts. that developed Neurology evaluated her and believes the TNK shattered the thrombus leading to multiple infarcts as reported in MRI. She was started on Aspirin, Plavix and atorvastatin. Evaluated by speech therapy who recommended NDD1 PUREED diet with THIN liquids for now and continue EQUAL OPPORTUNITY REPRESENTATIVE upon discharge. She was also seen by PT\OT who recommended acute rehab which she will be discharged to. # Hypertension Mildly elevated. We allowed permissive hypertension first 24-48 hours. Restarted her home dose Lisinopril of 10 mg daily. Close monitoring BP at the facility and adjust the dose as needed. # Aspiration pneumonia Developed second day of admission as her mentation deteriorated. CXR showed LLL infiltrates. Treated with IV Antibiotics. To be discharged on 7 more days of Augmentin as blood cultures remained negative. Discharge plan Start Aspirin and Plavix Start Atorvastatin Continue Lisinopril 10 mg and monitor BP readings, avoid hypotension Continue Antibiotic as prescribed for 7 more days Time Attestation Discharge Coordination Time (in mins): 46 Quality: Safe Use of Opioids Does Pt have an Active Cancer Diagnosis on the Problem List?: No Quality: Stroke Does the patient have a stroke diagnosis?: Yes Reason for No Anti-thrombotic at DC: N/A - Med Ordered Reason for No Anticoagulant at DC: N/A - Med Ordered Reason Not Initiating IV-Tpa: N/A - Med Ordered Reason for No Anti-thrombotic by Day Two: N/A - Med Ordered Reason for No Statin at DC: N/A - Med Ordered Physical Exam Vital Signs: Vital Signs: Last Vital Signs Temp 98.4 F 01/01/24 11:40 Pulse 62 01/01/24 11:40 Resp 18 01/01/24 11:40 BP 170/80 H 01/01/24 10:03 Pulse Ox 94 01/01/24 11:40 O2 Del Method Room Air 01/01/24 11:40 O2 Flow Rate 2 12/30/23 16:00 BMI result Body Mass Index 35.4 Const: Other: Constitutional : Awake, interactive, not in distress Neck : Normal inspection, Supple Cardiovascular : RRR, no JVP, no lower extremity edema Respiratory : good bilateral air entry, no crackles, wheezes or rhonchi Gastrointestinal: soft, lax, Normal bowel sounds, Non tender Skin : Warm, Dry Neurological : Alert & oriented x3, Left sided hemiplegia , minimal power in LLE 1-/4, flaccid LUE DS: Data Data Completed and Pending Labs on day of discharge: Laboratory Results - last 24 hr 12/31/23 12/31/23 12/31/23 12:02 16:12 21:23 WBC RBC Hgb Hct MCV MCH MCHC RDW Plt Count MPV Absolute Nucleated RBC Nucleated RBC % (auto) Sodium Potassium Chloride Carbon Dioxide Anion Gap BUN Creatinine Estim Creat Clear Calc Estimated GFR POC Glucose 135 H 103 118 H Random Glucose Calcium 01/01/24 01/01/24 05:49 08:08 WBC 8.7 RBC 3.82 L Hgb 11.8 L Hct 35.0 L MCV 91.6 MCH 30.9 MCHC 33.7 RDW 12.5 Plt Count 155 L MPV 10.0 Absolute Nucleated RBC 0.000 Nucleated RBC % (auto) 0.0 Sodium 141 Potassium 3.2 L Chloride 107 Carbon Dioxide 26 Anion Gap 11 L BUN 10 Creatinine 0.73 Estim Creat Clear Calc 67.8 Estimated GFR > 60 POC Glucose 113 Random Glucose 120 H Calcium 8.8 Preliminary micro results at discharge 12/29/23 19:38 Blood Culture - Preliminary Blood - Venous No growth after 48 hours. 12/29/23 19:38 Blood Culture - Preliminary Blood - Venous No growth after 48 hours. Imaging MRI - head: Radiologist's impression: ITS Impressions Head CT 12/28/23 17:16 IMPRESSION: No acute intracranial pathology. There is an age indeterminate lacunar infarction within the anterior left canela radiata. Mild microvascular ischemic change. This critical result was discussed with Dr. Stout at 5:49 PM hours on 12/28/2023. It was ascertained that the content and urgency of the report was understood at the time of direct communication. Electronically signed by: Milton Scott DO 12/28/2023 05:[address] 12/28/23 18:59 IMPRESSION: No acute intracranial abnormality. Specifically, there is no intracranial hemorrhage status post the administration of TNK. Mild microvascular ischemic disease. Age indeterminate lacunar infarctions within the basal ganglia and left centrum semiovale. This critical result was discussed with Dr. Mederos at 8:15 PM on 12/28/2023 and it was ascertained that the content and urgency of the report was understood at the time of direct communication. Electronically signed by: Milton Scott DO 12/28/2023 08:16 PM EDT RP Head CT 12/29/23 00:37 IMPRESSION: *No acute intracranial abnormalities. No acute intracranial hemorrhage. Electronically signed by: Alfonso Hernandez MD 12/29/2023 02:21 AM EDT RP Brain MRI 12/29/23 10:30 IMPRESSION: There are multiple acute infarcts primarily located between the major vascular territories of the right cerebral hemisphere as well as a few cortical infarcts within the right occipital lobe. These findings are superimposed upon numerous chronic small vessel ischemic changes primarily involving the periventricular white matter. There are also scattered chronic microhemorrhages within the gary, thalami, and cerebellum indicating the likelihood of underlying chronic hypertensive angiopathy. Electronically signed by: Nii Lyon MD 12/29/2023 02:06 PM EDT RP Chest X-Ray 12/29/23 14:30 IMPRESSION: Cardiomegaly with mild CHF as above. Retrocardiac infiltrate suspected. Electronically signed by: Dennis Marsh MD 12/29/2023 03:35 PM EDT RP Chest X-Ray 12/29/23 19:05 IMPRESSION: Suboptimal study to evaluate bases due to body habitus and overlying thermal blanket. Left costophrenic angle is blunted and may represent consolidation or effusion. Recommend dedicated CT thorax for further evaluation, if indicated. Electronically signed by: Ernst Syed DO 12/29/2023 09:32 PM EDT RP Discharge Plan Discharge Anticipated Discharge Date/Time: 01/01/24 11:30 Patient Disposition: Xfer Inpatient Rehab Fac Discharge Diagnosis: Acute stroke Aspiration pneumonia Referrals: [facility] [Outside] - 1 Week Adam Laboy MD [Primary Care Provider] - 1 Week Discharge Medications: New atorvastatin 40 mg Tablet 40 mg PO DAILY Qty: 90 0RF clopidogrel 75 mg Tablet 75 mg PO DAILY Qty: 90 0RF aspirin 81 mg Tablet,Delayed Release (Dr/Ec) 81 mg PO DAILY Qty: 90 0RF amoxicillin-pot clavulanate 400-57 mg/5 mL suspension for reconstitution 10 ml PO BID Qty: 200 0RF Continued lisinopril 10 mg tablet 10 mg PO DAILY omeprazole 20 mg capsule,delayed release(DR/EC) 20 mg PO DAILY@0630 Discharge Orders: Discharge Order (Routine); Ordered 01/01/24 Ordered By: Adilson Balderrama Diet: Pureed w thin liquids Activity on Discharge: As tolerated Stand Alone Forms: Patient Portal Discharge page Print Language: Guyanese Care Plan Goals: Start Aspirin and Plavix Start Atorvastatin Continue Lisinopril 10 mg and monitor BP readings, avoid hypotension Continue Antibiotic as prescribed for 7 more days Health Concerns: Acute stroke Aspiration pneumonia Plan of Treatment: Read below Assessment: Continue acute rehab
[2024-01-01] MEDS: lisinopriL 10 MG TABLET PO (11:52)
[2024-01-01 11:55] VITALS: BP 170/90
[2024-01-01 11:59] LABS: Glucose, Whole Blood 112 mg/dL (60-115)
[2024-01-01 13:53] VITALS: BP 158/76
--- NOTE | 2024-01-17 15:01 | P.CDIM_ITS ---
PROVIDER RESPONSE TEXT: To clarify, the appropriate diagnosis supported by the clinical indicators: Acute Right MCA stoke QUERY TEXT: PHYSICIAN'S DOCUMENTATION REQUEST Date of Query: 01/16/2024 09:49 AM EDT Patient Name: Anabel Titus Admit Date: 12/29/2023 Dear Adilson Balderrama MD, RETROSPECTIVE QUERY A review of the medical record indicates additional documentation may be needed. Please review below and update the documentation accordingly. Clinical Indicators: H&P 12/27 - Left upper extremity weakness, left leg heavy, left sided paresis. CT shows lacunar infarc t within anterior left canela radiata. Neurology progress notes 12/28 & 12/29: Acute CVA, MRI with multiple right sided infarcts. Large right middle cerebral artery with left hemiparesis. Baby aspirin and clopidogrel 75 mg daily wi statin. Discharge summary dated 01/01/24 - Acute cerebrovascular accident with Acute left MCA stroke. Clarify which of the following accurately represents the inconsistency between left/right stroke: Possible options might include: Acute Left MCA stroke Acute Right MCA stoke Other (explain) Clinically unable to determine (explain) Thank you, Bridgette Chavarria, CCS, CDIS Use of terms such as suspected, likely, concern for, or probable (associated with a specific diagnosi s that is being evaluated, monitored, or treated as if it exists) are acceptable and can be coded in the inpatient se tting, when documented at the time of discharge. Please use your independent medical judgment in providing your response. THIS QUERY IS PART OF THE PERMANENT MEDICAL RECORD
== END 2024-01-01 14:59 | DRG 61 ==
LOC: HO.ED 17:43 → HO.EDOVER 22:51 → HO.ICU 23:49 → HO.IMC 12-29 13:09 → HO.ICU 12-29 19:49 → HO.IMC 12-31 17:54
PROVIDERS: Internal Medicine; Physician Assistant Medical; Registered Nurse Community Health; Student in an Organized Health Care Education/Training Program; Admitting Provider Internal Medicine Pulmonary Disease; Emergency Provider Internal Medicine; PCP Internal Medicine; Visit Provider Student in an Organized Health Care Education/Training Program
DX: I63.411 Cerebral infarction due to embolism of right middle cerebral artery (principal); J69.0 Pneumonitis due to inhalation of food and vomit; Z87.891 Personal history of nicotine dependence; G83.24 Monoplegia of upper limb affecting left nondominant side; R29.703 NIHSS score 3; I10 Essential (primary) hypertension; Z79.899 Other long term (current) drug therapy
CPT/HCPCS: 36415; 70450; 70496; 70498; 70551; 71045; 80048; 80061; 81001; 82040; 82565; 82803; 82947; 83605; 83735; 84100; 84484; 85025; 85027; 85610; 85730; 87040; 87086; 92526; 92610; 93005; 93306; 97110; 97163; 97167; 97530; 99285; C1758; J0131; J0295; J2270; J2405; J2543; J3101; J3370; J7120; P9047; Q9967

== ENCOUNTER 2023-12-28 22:47 | Outpatient (BNV) | payer MEDICARE, OTHER, SELFPAY | END 2023-12-28 22:48 | PROVIDERS: Admitting Provider Internal Medicine Pulmonary Disease; Emergency Provider Internal Medicine; PCP Internal Medicine; Visit Provider Internal Medicine Cardiovascular Disease | DX: I35.0 Nonrheumatic aortic (valve) stenosis (principal); I35.8 Other nonrheumatic aortic valve disorders | CPT/HCPCS: 93306 ==

== ENCOUNTER → 2023-12-28 22:47 | Outpatient (BNV) | payer MEDICARE, OTHER, SELFPAY | PROVIDERS: Admitting Provider Internal Medicine Pulmonary Disease; Emergency Provider Internal Medicine; PCP Internal Medicine; Visit Provider Internal Medicine Pulmonary Disease | DX: I63.411 Cerebral infarction due to embolism of right middle cerebral artery (principal); I10 Essential (primary) hypertension | CPT/HCPCS: 99233 ==

== ENCOUNTER → 2023-12-28 22:47 | Outpatient (BNV) | payer MEDICARE, OTHER, SELFPAY | PROVIDERS: Admitting Provider Internal Medicine Pulmonary Disease; Emergency Provider Internal Medicine; PCP Internal Medicine; Visit Provider Registered Nurse Community Health | DX: J69.0 Pneumonitis due to inhalation of food and vomit (principal); I63.411 Cerebral infarction due to embolism of right middle cerebral artery; I10 Essential (primary) hypertension | CPT/HCPCS: 99291; 99499 ==

== ENCOUNTER → 2023-12-28 22:47 | Outpatient (BNV) | payer MEDICARE, OTHER, SELFPAY | PROVIDERS: Admitting Provider Internal Medicine Pulmonary Disease; Emergency Provider Internal Medicine; PCP Internal Medicine; Visit Provider Student in an Organized Health Care Education/Training Program | DX: J69.0 Pneumonitis due to inhalation of food and vomit (principal); I63.411 Cerebral infarction due to embolism of right middle cerebral artery; I10 Essential (primary) hypertension | CPT/HCPCS: 99239; 99499 ==

== ENCOUNTER → 2023-12-28 22:47 | Outpatient (BNV) | payer MEDICARE, OTHER, SELFPAY | PROVIDERS: Admitting Provider Internal Medicine Pulmonary Disease; Emergency Provider Internal Medicine; PCP Internal Medicine; Visit Provider Psychiatry & Neurology Neurology | DX: I63.411 Cerebral infarction due to embolism of right middle cerebral artery (principal) | CPT/HCPCS: 99223; 99232 ==

== ENCOUNTER 2024-07-15 20:48 | Emergency (ER) | payer MEDICARE, SELFPAY ==
--- NOTE | 2024-07-15 | ECG_ITS ---
Test Reason : FALL Blood Pressure : */* mmHG Vent. Rate : 80 BPM Atrial Rate : 80 BPM P-R Int : 182 ms QRS Dur : 84 ms QT Int : 412 ms P-R-T Axes : -15 -25 -7 degrees QTcB Int : 475 ms Normal sinus rhythm Septal infarct , age undetermined Inferior infarct (cited on or before 28-Dec-2023) Abnormal ECG When compared with ECG of 29-Dec-2023 20:25, Premature ventricular complexes are no longer Present Nonspecific T wave abnormality no longer evident in Anterolateral leads Referred By: Generic ED Physician Electronically Signed By: SCOTTIE BURRELL
--- NOTE | ~2024-07-15 | XR_ITS ---
CLINICAL HISTORY: fall 3 view, pelvis and left hip Comparison: None Findings: No acute fracture or dislocation injury identified. The left femoral head is appropriately positioned with respect to the left acetabulum. Degenerative endplate changes are present at the lower lumbar spine. IMPRESSION: 1. No acute fracture or dislocation injury identified at the bony pelvis or left hip. This document has been electronically signed by: Gab Chaudhari MD on 07/16/2024 00:17:10
--- NOTE | ~2024-07-15 | XR_ITS ---
CLINICAL HISTORY: fall 5 view left knee Comparison: None Findings: Bones intact. No dislocations. Minimal left suprapatellar effusion. No radiopaque foreign body. IMPRESSION: 1. No acute fracture or dislocation injury identified at the left knee. This document has been electronically signed by: Gab Chaudhari MD on 07/16/2024 00:19:21
--- NOTE | ~2024-07-15 | CT_ITS ---
CLINICAL HISTORY: fall CT cervical spine without contrast Comparison: CT/SR - CT ANGIO HEAD NECK STROKE - 12/28/23 17:23 EDT Findings: The visualized portions of the bilateral lung apices appear clear. There is grade 1 anterolisthesis of C7 on T1. Severe degenerative endplate changes are present at the cervical spine. Multilevel bilateral degenerative facet arthropathy also present at the cervical spine. No acute fractures or dislocations. Impression: 1. No acute fracture or dislocation injury identified at the cervical spine. This document has been electronically signed by: Gab Chaudhari MD on 07/15/2024 22:42:50
--- NOTE | ~2024-07-15 | CT_ITS ---
CLINICAL HISTORY: fall CT head without contrast Comparison: MR/SR - MR HEAD/BRAIN WO CON - 12/29/23 11:[address]/SR - CT HEAD/BRAIN WO IV CON - 12/29/23 00:11 EDT Findings: No intracranial mass, midline shift, hydrocephalus, or acute hemorrhage. There is generalized cerebral volume loss. Right frontoparietal and right occipital foci of encephalomalacia are present. [id number] nonspecific periventricular and subcortical white matter changes are identified, which may be seen in the setting of chronic small vessel ischemic disease. Minimal mucosal thickening identified of the inferior aspects of the bilateral frontal sinuses and also within the ethmoid air cells. The bilateral mastoid air cells appear clear. No acute skull fracture. Mild left parietal scalp hematoma. Impression: 1. No acute intracranial abnormality. No acute intracranial hemorrhage. 2. Mild left parietal scalp hematoma. No acute calvarial fracture. This document has been electronically signed by: Gab Chaudhari MD on 07/15/2024 22:50:29
[2024-07-15 20:57] VITALS: BP 134/86; BP 164/73; PULSE 62; PULSE 72; RESP 16; TEMP 36.7; O2SAT 96; BMI 35.9
[2024-07-15 21:15] LABS: MANUAL DIFF FLAG NO
[2024-07-15 21:17] LABS: Basophils Absolute Auto 0.1 X10*3/uL (0.0-0.2); Basophils Percent Auto 0.7 % (0-2); Eosinophils Absolute Auto 0.3 X10*3/uL (0.0-0.4); Eosinophils Percent Auto 3.6 % (0-4); Hematocrit 37.1 % (37.0-47.0); Hemoglobin 12.2 g/dl (12.0-16.0); Imm Gran Abs Auto 0.02 X10*3/uL (0.00-0.03); Imm Gran Pct Auto 0.2 % (0.0-0.4); Lymphocytes Absolute Auto 1.6 X10*3/uL (1.2-4.9); Lymphocytes Percent Auto 19.7 % (20-40); Mean Corpuscular HGB Conc 32.9 g/dl (31.0-35.0); Mean Corpuscular Hemoglobin 30.2 pg (27.0-33.0); Mean Corpuscular Volume 91.8 fL (80.0-98.0); Mean Platelet Volume 9.2 fL (9.4-12.3); Monocytes Absolute Auto 0.6 X10*3/uL (0.1-1.2); Monocytes Percent Auto 6.8 % (2-11); Neutrophils Absolute Auto 5.7 x10*3/uL (2.0-8.3); Platelet Count 277 X10*3/uL (160-400); Red Blood Count 4.04 X10*6/uL (4.20-5.50); Red Cell Distribution Width 13.2 % (11.0-16.0); White Blood Count 8.2 X10*3/uL (4.8-10.8)
[2024-07-15 21:23] LABS: INTERNATIONAL NORM RATIO 0.9 (0.9-1.1); Prothrombin Time 10.6 SEC (10.9-12.4)
[2024-07-15 21:36] LABS: Alanine Aminotransferase 20 U/L (0-31); Albumin Level 4.1 g/dL (3.5-5.0); Alkaline Phosphatase 152 U/L (39-117); Anion Gap 11 (12-20); Aspartate Amino Transferase 26 U/L (5-31); Bilirubin Total 0.4 mg/dL (0.0-1.0); Blood Urea Nitrogen 20 mg/dL (9-16); Calcium 9.4 mg/dL (8.4-10.2); Carbon Dioxide 27 mmol/L (22-29); Chloride 107 mmol/L (96-108); Creatinine Clr Calc Pharmacy 64.5; Estimated Glomerular Filt Rate > 60; Glucose Random 101 mg/dL (60-115); Potassium 4.3 mmol/L (3.3-5.1); Sodium 141 mmol/L (135-145); Total Protein 7.1 g/dL (6.5-8.0)
[2024-07-15 21:44] LABS: Troponin-I High Sensitivity 3.1 ng/L (<3.5-17.0)
--- NOTE | 2024-07-15 22:14 | PC.NURSE ---
pt taken to CT Scan
--- NOTE | 2024-07-15 22:36 | PC.NURSE ---
family at the bedside, pt remain in c-spine precautions. awaiting Ct scan results.
[2024-07-15 23:07] VITALS: BP 138/64; PULSE 64; RESP 17; TEMP 36.4; O2SAT 96
--- NOTE | 2024-07-15 23:14 | PC.NURSE ---
Provider into assess pt, pt no longer in c-spine precaution.
--- NOTE | 2024-07-15 23:20 | MHC.EDTECH ---
this tech assumed care of pt @2159
--- NOTE | 2024-07-15 23:25 | ED.FALL ---
HPI - Fall General Chief Complaint: Fall Stated Complaint: fall w/ head strike, +thinners, no loc Time Seen by Provider: 07/15/24 22:55 History of Present Illness HPI Narrative: Patient is a 79-year-old female with a history of CVA currently on Plavix. Status post accidental fall. Patient was trying to get out of the bathroom when she fell. She was not dizzy she was not lightheaded did complaining of hitting her head. Has a baseline history of left-sided weakness from a previous stroke. No chest pain or diaphoresis no new focal weakness. Related Data Home Medications ?Medication ?Instructions ?Recorded ?Confirmed lisinopril 10 mg tablet 10 mg PO DAILY 12/29/23 12/29/23 omeprazole 20 mg capsule,delayed 20 mg PO DAILY@0630 12/29/23 12/29/23 release Previous Rx's ?Medication ?Instructions ?Recorded amoxicillin 400 mg-potassium 10 ml PO BID #200 mL 01/01/24 clavulanate 57 mg/5 mL oral suspension aspirin 81 mg tablet,delayed 81 mg PO DAILY #90 tabs 01/01/24 release atorvastatin 40 mg tablet 40 mg PO DAILY #90 tabs 01/01/24 clopidogrel 75 mg tablet 75 mg PO DAILY #90 tabs 01/01/24 Allergies Allergy/AdvReac Type Severity Reaction Status Date / Time No Known Allergies Allergy Unknown Verified 07/15/24 21:01 Review of Systems Review of Systems: Positive left-sided weakness old Positive accidental fall Yes all other systems are reviewed and are negative PMFSH Past Medical History Attestation statement: The following information was validated with the patient. Medical History Primary osteoarthritis of right knee HTN (hypertension) Social History Social History Household Members: Spouse Housing: House Do you presently have visiting nurse or other home services: No Patient Tobacco Use Status: Former Tobacco user Tobacco use type: Cigarette Use of substances other than those prescribed or required for medical reasons: No Advance Directives: Yes Advance Directives on File: Yes Advance Directives Date on File: 12/29/23 Do you have a plan to hurt others: No Plan service: No Current occupational status: retired Current occupation: right handed Physical Exam Vital Signs: Vital Signs: Last Vital Signs Temp 97.6 F 07/15/24 23:07 Pulse 64 07/15/24 23:07 Resp 17 07/15/24 23:07 BP 138/64 07/15/24 23:07 Pulse Ox 96 07/15/24 23:07 O2 Del Method Room Air 07/15/24 23:07 BMI result Body Mass Index 35.9 Appearance: Alert. Oriented X3. No acute distress. Eyes: Pupils equal, round and reactive to light. ENT: Pharynx normal. Neck: Normal inspection. Neck supple. No lymph nodes noted. No crepitus CVS: Normal heart rate and rhythm. Pulses normal. Normal S1 and S2 Respiratory: No respiratory distress. Breath sounds normal. No Wheezing. No rales Abdomen: Soft and nontender. No rigidity. No distention. good BS x4 Skin: Skin warm and dry. Normal skin color. Normal skin turgor. Extremities: No lower extremity edema. No Lacerations. No Rash. No clavicular tenderness bilaterally no chest wall tenderness no crepitus no tenderness on palpation distal extremity there is mild pain on movement of the left hip and left knee there is no gross deformities noted Neuro: Oriented X 3. Good motor movement of the right upper and lower extremity. Examination of the left upper extremity is somewhat limited as patient had limited mobility. Limited mobility in the left lower extremity as well distal pulses intact sensation intact Medical Decision Making Medical Decision Making [facility] Narrative: Status post accidental fall. Question head injury patient is on Plavix. CT scan of the head and C-spine was done. My interpretation of the CTs head was grossly negative for any acute evidence of bleeding. No fracture. My interpretation of the C-spine was grossly negative for any acute evidence of fracture. No malalignment. Patient had x-ray of the hip and knee done. My interpretation of the x-rays are grossly negative for fracture. My interpretation patient's EKG showed a sinus rhythm heart rate is 80 MD QRS QTC normal there is inferior Q-waves noted which are old. No acute ST segment elevation Differential Diagnosis Differential Diagnoses: The differential diagnosis associated with the presentation includes Head injury, C-spine injury, fractures Admission/Observation Consideration of admission/observation: Escalation of care including admission/observation considered No need for admission patient has good follow-up has attentive family the fall was mechanical Lab Data [facility] Lab Attestation statement: I reviewed the patient's lab results. 07/15/24 21:09 07/15/24 21:09 Labs: Lab Results 07/15/24 Range/Units 21:09 WBC 8.2 (4.8-10.8) X10*3/uL RBC 4.04 L (4.20-5.50) X10*6/uL Hgb 12.2 (12.0-16.0) g/dl Hct 37.1 (37.0-47.0) % MCV 91.8 (80.0-98.0) fL MCH 30.2 (27.0-33.0) pg MCHC 32.9 (31.0-35.0) g/dl RDW 13.2 (11.0-16.0) % Plt Count 277 (160-400) X10*3/uL MPV 9.2 L (9.4-12.3) fL Immature Gran % (Auto) 0.2 (0.0-0.4) % Neut % (Auto) 69.0 (45-73) % Lymph % (Auto) 19.7 L (20-40) % Dewey % (Auto) 6.8 (2-11) % Eos % (Auto) 3.6 (0-4) % Baso % (Auto) 0.7 (0-2) % Lymph # (Auto) 1.6 (1.2-4.9) X10*3/uL Dewey # (Auto) 0.6 (0.1-1.2) X10*3/uL Eos # (Auto) 0.3 (0.0-0.4) X10*3/uL Baso # (Auto) 0.1 (0.0-0.2) X10*3/uL Abs Immat Gran (auto) 0.02 (0.00-0.03) X10*3/uL Absolute Neuts (auto) 5.7 (2.0-8.3) x10*3/uL Absolute Nucleated RBC 0.000 (0.0-0.012) X10*3/uL Nucleated RBC % (auto) 0.0 (0.0-0.2) /100WBC PT 10.6 L (10.9-12.4) SEC INR 0.9 (0.9-1.1) Sodium 141 (135-145) mmol/L Potassium 4.3 (3.3-5.1) mmol/L Chloride 107 (96-108) mmol/L Carbon Dioxide 27 (22-29) mmol/L Anion Gap 11 L (12-20) BUN 20 H (9-16) mg/dL Creatinine 0.79 (0.5-1.4) mg/dL Estim Creat Clear Calc 64.5 Estimated GFR > 60 Random Glucose 101 (60-115) mg/dL Calcium 9.4 D (8.4-10.2) mg/dL Total Bilirubin 0.4 (0.0-1.0) mg/dL AST 26 (5-31) U/L ALT 20 (0-31) U/L Alkaline Phosphatase 152 H (39-117) U/L Troponin I High Sens 3.1 (<3.5-17.0) ng/L Total Protein 7.1 (6.5-8.0) g/dL Albumin 4.1 (3.5-5.0) g/dL Independent Interpretation I performed an independent interpretation of an: EKG (See above), Plain X-Ray (Plain film hip and knee negative) and CT Scan (CT head negative) Radiology Impression Discussion of test interpretation with radiology: I have reviewed the radiologist's reading. Chronic Conditions Patient?s care impacted by: Hypertension History of CVA Discharge Plan Discharge Clinical Impression: Head injury Patient Disposition: Home, Self-Care Instructions: Head Injury (ED) Prescriptions: No Action lisinopril 10 mg tablet 10 mg PO DAILY omeprazole 20 mg capsule,delayed release(DR/EC) 20 mg PO DAILY@0630 atorvastatin 40 mg Tablet 40 mg PO DAILY Qty: 90 0RF clopidogrel 75 mg Tablet 75 mg PO DAILY Qty: 90 0RF aspirin 81 mg Tablet,Delayed Release (Dr/Ec) 81 mg PO DAILY Qty: 90 0RF amoxicillin-pot clavulanate 400-57 mg/5 mL suspension for reconstitution 10 ml PO BID Qty: 200 0RF Referrals: Claire Gamino PA [Primary Care Provider] - 07/18/24 Print Language: Lao
--- NOTE | 2024-07-16 00:53 | PC.NURSE ---
reviewed discharge instructions with pt. pt verbalized understanding, no sign of distress, pt back at her baseline, pt assisted into wheel chair and brought out to [place], pt discharged home with family.
[2024-07-16 00:54] VITALS: BP 138/64; PULSE 64; RESP 17; TEMP 36.4; O2SAT 96
== END 2024-07-16 00:54 | disposition home or self-care (01) ==
PROVIDERS: Emergency Provider Emergency Medicine Emergency Medical Services
DX: S09.90XA Unspecified injury of head, initial encounter (principal); R51.9 Headache, unspecified; R94.31 Abnormal electrocardiogram [ECG] [EKG]; M54.2 Cervicalgia; R10.2 Pelvic and perineal pain; M25.562 Pain in left knee; X58.XXXA Exposure to other specified factors, initial encounter; Y93.9 Activity, unspecified; Y92.9 Unspecified place or not applicable; Y99.8 Other external cause status; Z86.73 Personal history of transient ischemic attack (TIA), and cerebral infarction without residual deficits; Z79.01 Long term (current) use of anticoagulants; Z79.899 Other long term (current) drug therapy
CPT/HCPCS: 36415; 70450; 72125; 73502; 73564; 80053; 84484; 85025; 85610; 93005; 99284; 99285

== ENCOUNTER → 2024-07-15 21:02 | Outpatient (BNV) | payer MEDICARE, SELFPAY | PROVIDERS: Emergency Provider Emergency Medicine Emergency Medical Services; Visit Provider Internal Medicine | DX: I21.09 ST elevation (STEMI) myocardial infarction involving other coronary artery of anterior wall (principal); I25.2 Old myocardial infarction | CPT/HCPCS: 93010 ==

== ENCOUNTER → 2024-07-15 21:55 | Outpatient (BNV) | payer MEDICARE, SELFPAY | PROVIDERS: Emergency Provider Emergency Medicine Emergency Medical Services; Visit Provider Radiology Diagnostic Radiology | DX: S09.90XA Unspecified injury of head, initial encounter (principal) | CPT/HCPCS: 70450; 72125; 73502; 73564 ==

== ENCOUNTER 2024-09-03 16:36 | Emergency (ER) | payer MEDICARE, OTHER, SELFPAY ==
[2024-09-03 16:59] VITALS: BP 162/74; PULSE 71; O2SAT 95
[2024-09-03 17:00] VITALS: BP 125/65; PULSE 67; RESP 16; TEMP 36.2; O2SAT 98; BMI 34.5
--- NOTE | 2024-09-03 17:02 | PC.NURSE ---
Pt's implant site with dressing soaked in blood; dressing removed; pt had a type of topical closure device over the incision, but was not effective in holding wound closed; device removed and area cleaned 1 cm incsion noted oozing blood; MD at bedside throughout; pt denies pain to implant site, vss, no other complaints; suture set provided to MD; will assist as needed
--- NOTE | 2024-09-03 17:08 | ED_ITS ---
HPI - General Adult General Chief complaint: General Medical Stated complaint: bleed in implant Time Seen by Provider: 09/03/24 16:45 Source: patient, family and EMS Mode of arrival: EMS Limitations: no limitations History of Present Illness ED Provider: DR. Lundberg HPI narrative: 79-year-old female came in by ambulance for a bleeding surgical incision evaluation. Patient s/p ILR at her captain room service to rule out atrial fibrillation the procedure was done 3 hours ago, patient is taking aspirin and Plavix no anticoagulation. Steri-Strips was used to close the incision. Patient noted that she is oozing blood from the incision on her left side of her chest. No CP, no SOB, no fever, no chills, no dizziness, no palpitation. Related Data Home Medications ?Medication ?Instructions ?Recorded ?Confirmed lisinopril 10 mg tablet 10 mg PO DAILY 12/29/23 12/29/23 omeprazole 20 mg capsule,delayed 20 mg PO DAILY@0630 12/29/23 12/29/23 release Previous Rx's ?Medication ?Instructions ?Recorded amoxicillin 400 mg-potassium 10 ml PO BID #200 mL 01/01/24 clavulanate 57 mg/5 mL oral suspension aspirin 81 mg tablet,delayed 81 mg PO DAILY #90 tabs 01/01/24 release atorvastatin 40 mg tablet 40 mg PO DAILY #90 tabs 01/01/24 clopidogrel 75 mg tablet 75 mg PO DAILY #90 tabs 01/01/24 Allergies Allergy/AdvReac Type Severity Reaction Status Date / Time No Known Allergies Allergy Unknown Verified 09/03/24 17:02 Review of Systems 2 Review of Systems: All other systems are reviewed and are negative Constitutional: Reports as per HPI and Reports no additional constitutional complaints Eyes: Reports as per HPI and Reports no additional eye complaints Reports system reviewed and no additional complaints, except as documented Cardiovascular: Reports as per HPI and Reports no additional cardiovascular complaints Respiratory: Reports as per HPI and Reports no additional respiratory complaints Gastrointestinal: Reports as per HPI and Reports no additional gastrointestinal complaints Genitourinary: Reports no additional female genitourinary complaints Musculoskeletal: Reports no additional musculoskeletal complaints Skin/Breast: Reports system reviewed and no additional complaints, except as docu Psychiatric: Reports no additional psychiatric complaints Endocrine: Reports no additional endocrine complaints Hematologic/Lymphatic: Reports no additional hematologic/lymphatic complaints Allergic/Immunologic: Reports no additional allergic/immunologic complaints Reports system reviewed and no additional complaints, except as documented and Reports Abnormal speech present [facility] Past Medical History Medical History Primary osteoarthritis of right knee HTN (hypertension) Social History Social History Household Members: Spouse Housing: House Do you presently have visiting nurse or other home services: No Patient Tobacco Use Status: Former Tobacco user Tobacco use type: Cigarette Smoked in Last 30 Days: No Use of substances other than those prescribed or required for medical reasons: No Advance Directives: Yes Advance Directives on File: Yes Advance Directives Date on File: 01/02/24 Do you have a plan to hurt others: No Plan service: No Current occupational status: retired Current occupation: right handed Physical Exam ED Vital Signs: Vital Signs - 24 hr 09/03/24 17:00 09/03/24 18:00 09/03/24 20:00 Temperature 97.1 F 98.2 F 98.1 F Pulse Rate 67 66 64 Respiratory Rate 16 19 16 Blood Pressure 125/65 139/66 128/62 Pulse Oximetry 98 96 94 Oxygen Delivery Method Room Air Room Air BMI result Body Mass Index 34.5 Vital signs have been reviewed and appear to be correct. Blood pressure elevated. Heart rate normal. Respiratory rate normal. Temperature normal. Oxygen saturation normal. Appearance: Alert. Oriented X3. No acute distress. Head: Normal external exam. Normocephalic. Atraumatic. No Bowman signs noted. No raccoon eyes noted Eyes: PERRLA. EOMI. Conjunctiva and sclera normal. Eyelids normal. ENT: TM's Normal. Pharynx normal. Uvula midline. Moist mucous membranes. No trismus noted. No drooling noted. No muffled voice noted. Neck: Normal inspection. Neck supple. FROM. No adenopathy. Thyroid Normal. No meningeal signs. No neck mass noted. CVS: Normal heart rate and rhythm. Heart sound normal. No murmurs noted. Pulses normal throughout. Respiratory: No respiratory distress. Painless inspiration. Breath sounds normal. No wheezes/rales/rhonchi noted. No accessory muscle usage noted or decreased air movement noted. Abdomen: 1 cm surgical incision on the left chest wall, with active but slow bleeding. Soft and nontender. Bowel sounds normal in all 4 quadrants. No distention noted. No organomegaly noted. No visible injury noted. Back: No CVA tenderness. Full range of motion noted. Skin: Skin warm and dry. Normal skin color. Normal skin turgor. No rashes/lesions/lacerations noted. Extremities: No lower extremity edema. Extremities exhibit normal range of motion. Extremities nontender. Neuro: Oriented X 3. Cranial nerve exam: II-XII are grossly intact No motor deficit. No sensory deficit. Reflexes normal. Course Reevaluation(s) Reevaluation #1: 79-year-old female on Plavix/aspirin s/p ILR implanted in her left chest with a complicated bleeding from the incision that was controlled by placing 2 suture in the incision. Will check CBC/platelet/coagulation. Otherwise patient is stable to be discharged and follow-up with her captain room service as scheduled. Time: 17:15 Reevaluation #2: Still oozing blood from the incision 3rd suture was placed, will observe in the ED for bleeding. Time: 18:57 Reevaluation #3: Surgicel was applied to the incision no further bleeding, patient is stable to be discharged now. Time: 20:29 Medications Administered Discontinued Medications Generic Name Dose Route Start Last Admin Trade Name Freq PRN Reason Stop Dose Admin Lidocaine HCl 5 ml 09/03/24 17:04 09/03/24 17:08 Lidocaine Hcl 1 % 20 Ml Vial INFILTRATI 09/03/24 17:05 Not Given ONCE ONE Procedures Laceration Laceration 1: Site: chest Side (If applicable): left Size (cm): 1 Description: linear Depth: simple, single layer Local Anesthetic: lidocaine 1% Amount of anesthesia used (mL): 3 Skin layer closed with: nylon Size (cm): 3-0 Number of sutures: 2 Technique: simple, interrupted Medical Decision Making Differential Diagnosis Differential Diagnoses: The differential diagnosis associated with the presentation includes (Incision bleeding control, hemodynamic instability, severe anemia, thrombocytopenia.) Admission/Observation Consideration of admission/observation: Escalation of care including admission/observation considered Lab Data MDM Lab Attestation statement: I reviewed the patient's lab results. 09/03/24 17:44 Labs: Lab Results 09/03/24 Range/Units 17:44 WBC 6.2 (4.8-10.8) X10*3/uL RBC 3.88 L (4.20-5.50) X10*6/uL Hgb 11.6 L (12.0-16.0) g/dl Hct 35.6 L (37.0-47.0) % MCV 91.8 (80.0-98.0) fL MCH 29.9 (27.0-33.0) pg MCHC 32.6 (31.0-35.0) g/dl RDW 12.8 (11.0-16.0) % Plt Count 286 (160-400) X10*3/uL MPV 9.4 (9.4-12.3) fL Absolute Nucleated RBC 0.000 (0.0-0.012) X10*3/uL Nucleated RBC % (auto) 0.0 (0.0-0.2) /100WBC PT 10.2 L (10.9-12.4) SEC INR 0.9 (0.9-1.1) APTT 31.4 (26.0-36.8) SEC Discharge Plan Discharge Clinical Impression: Bleeding from wound Patient Disposition: Home, Self-Care Additional Instructions: apply pressure on the wound if any bleeding and seek medical attention. follow up with your doctor. 3 sutures placed on the left chest wall that need to be removed in 7 days. Prescriptions: No Action lisinopril 10 mg tablet 10 mg PO DAILY omeprazole 20 mg capsule,delayed release(DR/EC) 20 mg PO DAILY@0630 atorvastatin 40 mg Tablet 40 mg PO DAILY Qty: 90 0RF clopidogrel 75 mg Tablet 75 mg PO DAILY Qty: 90 0RF aspirin 81 mg Tablet,Delayed Release (Dr/Ec) 81 mg PO DAILY Qty: 90 0RF amoxicillin-pot clavulanate 400-57 mg/5 mL suspension for reconstitution 10 ml PO BID Qty: 200 0RF Referrals: Claire Gamino PA [Primary Care Provider] - Print Language: [place]al[place]
[2024-09-03 17:59] LABS: INTERNATIONAL NORM RATIO 0.9 (0.9-1.1); Prothrombin Time 10.2 SEC (10.9-12.4)
[2024-09-03 18:00] VITALS: BP 139/66; PULSE 66; RESP 19; TEMP 36.8; O2SAT 96
[2024-09-03 18:02] LABS: Partial Thromboplastin Time 31.4 SEC (26.0-36.8)
[2024-09-03 18:06] LABS: Hematocrit 35.6 % (37.0-47.0); Hemoglobin 11.6 g/dl (12.0-16.0); Mean Corpuscular HGB Conc 32.6 g/dl (31.0-35.0); Mean Corpuscular Hemoglobin 29.9 pg (27.0-33.0); Mean Corpuscular Volume 91.8 fL (80.0-98.0); Mean Platelet Volume 9.4 fL (9.4-12.3); Platelet Count 286 X10*3/uL (160-400); Red Blood Count 3.88 X10*6/uL (4.20-5.50); Red Cell Distribution Width 12.8 % (11.0-16.0); White Blood Count 6.2 X10*3/uL (4.8-10.8)
--- OUTSIDE RECORDS SUMMARY | 2024-09-03 18:24 | XMS_ITS | Patient Health Record ---
Author Organization [facility] Address [address] [place] [address] Care Team Providers Care Med Admin Name Role Phone Adam Laboy MD Primary Care Provider Unavaila ble Jenni Golden Unavailable [phone] Reason For Referral No Information Medications Medication SIG (Take, Route, Fr equency, Duration) Notes Start Date End Date Status Omeprazole 10 MG 2 capsules Orally Once a day Active Problems Problem Type SNOMED Code ICD Code Onset Dates Problem Status W/U Status Risk Notes Problem Hallux Valgus (735.0) Active confirmed Problem Hammer toe (024490784) Hammer toe (735.4) Active confirmed Plan Of Treatment No Information Insurance Providers Payer Name Payer Address Payer Phone Subscriber Number Group Number Insured Name Patient Relationship to Insured Coverage Start Date Coverage End Date [employer] ([facility] [address] [place] [id number] Titus Self - patient is the insured Medical (General) History Medical History History ICD Code Cancer Measles Chicken pox Surgical History Surgery Date(Month/Year) lopez
[2024-09-03 20:00] VITALS: BP 128/62; PULSE 64; RESP 16; TEMP 36.7; O2SAT 94
[2024-09-03 20:43] VITALS: BP 136/90; PULSE 68; RESP 18; TEMP 36.8; O2SAT 94
--- NOTE | 2024-09-03 20:44 | PC.NURSE ---
dressing dry, clean, no evidence of drainage upon d/c.
== END 2024-09-03 20:44 | disposition home or self-care (01) ==
PROVIDERS: Emergency Provider Emergency Medicine
DX: L76.22 Postprocedural hemorrhage of skin and subcutaneous tissue following other procedure (principal); I10 Essential (primary) hypertension; Z86.73 Personal history of transient ischemic attack (TIA), and cerebral infarction without residual deficits
CPT/HCPCS: 12001; 36415; 85027; 85610; 85730; 99284

== ENCOUNTER 2024-12-12 11:03 | Outpatient (RCR) | payer MEDICARE, OTHER, SELFPAY | END 2025-03-16 10:27 | disposition home or self-care (01) | LOC: HO.PT 11:03 | DX: I63.512 Cerebral infarction due to unspecified occlusion or stenosis of left middle cerebral artery (principal) | CPT/HCPCS: 97110; 97112; 97116; 97140; 97163; 97530 ==

== ENCOUNTER 2025-01-20 11:00 | Outpatient (RCR) | payer MEDICARE, OTHER, SELFPAY | END 2025-01-20 12:53 | disposition home or self-care (01) | LOC: HO.OT 11:00 | PROVIDERS: Visit Provider Nurse Practitioner Adult Health | DX: I63.512 Cerebral infarction due to unspecified occlusion or stenosis of left middle cerebral artery (principal); Z91.81 History of falling | CPT/HCPCS: 29130; 97110; 97112; 97140; 97165; 97530; 97535; 97760 ==

== ENCOUNTER 2025-02-10 11:51 | Outpatient (REF) | payer MEDICARE, OTHER, SELFPAY ==
--- NOTE | ~2025-02-10 | MM_ITS ---
EXAMINATION: MM SCREENING DIGITAL BREAST TOMOSYNTHESIS, BILATERAL CLINICAL INFORMATION: Screening. Asymptomatic. COMPARISON: Mammography: Comparison is made with available priors TECHNIQUE: Digital breast mammography with tomosynthesis is performed in both the craniocaudal and mediolateral oblique views along with computer-aided detection (CAD). FINDINGS: Extremely Limited images due to patient's physical limitations within these limitations: There are scattered areas of fibroglandular density. Cardiac loop recorder is partially seen within the central inner left breast posteriorly. There are no significant masses, abnormal calcifications, or other abnormalities. MM/MM tomosynthesis screening BI IMPRESSION: No mammographic evidence of malignancy. ASSESSMENT: BI-RADS Category 2: Benign RECOMMENDATION: Routine annual mammography screening. 1 year F/U This examination should not preclude the clinical evaluation of a suspicious palpable abnormality. This patient's information was entered into a reminder system with a target due date for their next mammogram. Electronically signed by: Farideh Fuentes DO 02/10/2025 06:34 PM ERIC
== END 2025-02-10 11:52 | disposition home or self-care (01) ==
LOC: HO.MAMMO 11:51
PROVIDERS: Visit Provider Internal Medicine
DX: Z12.31 Encounter for screening mammogram for malignant neoplasm of breast (principal)
CPT/HCPCS: 77063; 77067

== ENCOUNTER → 2025-02-10 12:15 | Outpatient (BNV) | payer MEDICARE, OTHER, SELFPAY | PROVIDERS: Visit Provider Internal Medicine | DX: Z12.31 Encounter for screening mammogram for malignant neoplasm of breast (principal) | CPT/HCPCS: 77063; 77067 ==